=== PATIENT | female | born 1940 | race Caucasian/White ===

== ENCOUNTER → 2017-12-03 | Day surgery (SDC) | payer MEDICARE, OTHER ==
[2017-12-02 16:18] LABS: BASOPHILS # (AUTO) 0.1 (0.0-0.1); BASOPHILS % 1.3 % (0.0-1.0); EOSINOPHILS # (AUTO) 0.9 (0.0-0.4); EOSINOPHILS % 14.3 % (0.0-6.0); HEMATOCRIT 33.7 % (34.2-44.1); HEMOGLOBIN 10.7 g/dL (12.0-16.0); LYMPHOCYTES # (AUTO) 2.6 (1.0-3.2); LYMPHOCYTES % 43.7 % (18.0-39.1); MEAN CORPUSCULAR HEMOGLOBIN 28.2 pg (28-32); MEAN CORPUSCULAR HGB CONC 31.8 g/dL (31-35); MEAN CORPUSCULAR VOLUME 88.9 fL (81-99); MONOCYTES # (AUTO) 0.8 (0.2-0.8); MONOCYTES % 13.3 % (4.4-11.3); NEUTROPHILS # (AUTO) 1.6 (2.1-6.9); NEUTROPHILS % 27.2 % (38.7-80.0); PLATELET COUNT 255 x10e3/uL (140-360); RED BLOOD COUNT 3.79 x10e6/uL (3.6-5.1); RED CELL DISTRIBUTION WIDTH 15.5 % (11.7-14.4)
[2017-12-02 16:29] LABS: INR 0.77; PROTHROMBIN TIME 11.5 seconds (11.9-14.5)
[2017-12-02 16:37] LABS: ALBUMIN 4.2 g/dL (3.5-5.0); ALBUMIN/GLOBULIN RATIO 1.2 (0.8-2.0); ANION GAP 15.6 mmol/L (8-16); CHOL/HDL RATIO 3.6 (3.0-3.6); CREATININE, SERUM 1.21 mg/dL (0.57-1.11); POTASSIUM 4.6 mmol/L (3.5-5.1)
[2017-12-02 16:50] LABS: CALCIUM 9.9 mg/dL (8.4-10.2)
[~2017-12-03] VITALS: Ht 147.3 cm; Wt 60.8 kg
[2017-12-03] VITALS (9 sets, daily range): BP systolic 117–140; BP diastolic 51–68
[~2017-12-03] MED LIST: ACETAMINOPHEN500 MG; ADVAIR 250-501 EACH PO; ALBUTEROL2.5 MG/0.5 NEB; AZITHROMYCIN250 MG; BENTYL20 MG PO; BENZONATATE100 MG PO; CLOBETASOL EMOL15 GM; COUMADIN5 MG PO; CYPROHEPTADINE H4 MG PO; DICYCLOMINE HCL20 MG PO; DRONABINOL2.5 MG PO; FENTANYL CITRATE/PF 100MCG/2 ML INJ ONE; FLAGYL250 MG PO; HEPARIN SOD (PORCINE) 1000 UNIT/ML 30ML ONE; HEPARIN SOD/SOD CHLORIDE 2,000 ML ONE; HYDROXYCHLOROQ200 MG PO; IOPAMIDOL 370 MG/ML 200 ML INFUS..BTL INJ ONE; IPRATROPIU0.2 MG/1 M NEB; LEFLUNOMIDE10 MG PO; LEFLUNOMIDE20 MG PO; LEVAQUIN500 MG PO; LIDOCAINE HCL 2% LOCAL 20 ML VIAL ONE; LISINOPRIL10 MG PO; LISINOPRIL40 MG PO; LUMIGAN2.5 M1 OP; LUMIGAN2.5 M1 OU; METOCLOPRAMID5 MG/ML IV; METOCLOPRAMIDE10 MG PO; MIDAZOLAM HCL 2 MG/2 ML VIAL ONE; NITROGLYCERIN/D5W 200 MCG/ML 250 ML ONE; NORCO 7.5-3251 EACH PO; OMEPRAZOLE20 M1 PO; OMEPRAZOLE20 MG PO; OMEPRAZOLE40 MG PO; ONDANSETRON HCL INJ 2 MG/ML VIAL ONE; ONDANSETRON HCL4 MG PO; OTEZLA PO; PANTOPRAZOLE SO40 MG PO; PRAVASTATIN SOD40 MG PO; PREDNISONE10 MG PO; PREDNISONE20 MG PO; PROVENTIL HFA6.7 GM INH; REQUIP1 MG PO; ROPINIROLE HCL1 MG PO; SODIUM CHLORIDE 0.9% 1000ML 1,000 ML ONE; ULTRAM50 MG PO; UNKNOWN INHALER; VERAPAMIL HCL 2.5 MG/ML 2 ML VIAL ONE; VITAMIN D400 UNIT PO; [UNRECOGNIZED DRUG - CODE] PO; [UNRECOGNIZED DRUG - OTHER]
--- NOTE | 2017-12-03 12:44 | Operative Report ---
DATE OF PROCEDURE: December 03, 2017 PROCEDURE: Cardiac catheterization. INDICATIONS FOR THE PROCEDURE: Atypical chest pain, positive stress test. History of coronary artery disease. PREOPERATIVE ASSESSMENT: Pertinent medical record and diagnostic studies were reviewed prior to the procedure. Previous experience with anesthesia was reviewed. Pertinent risks, benefits and alternatives of the procedure were explained to the patient. Patient was deemed to be an appropriate candidate for moderate sedation. Informed consent for the procedure was obtained after explaining the risks, the benefits and the alternatives to the procedure to the patient and her family. All questions were answered. PROCEDURE: Patient was prepped and draped in a sterile fashion and brought to the cardiac catheterization laboratory in a fasting state. A 6-Tamazight Slender sheath was inserted in the right radial artery using modified Seldinger technique. Coronary angiography as well as left heart catheterization was performed using a Reebee diagnostic catheter. Multiple orthogonal views of both coronary arteries were taken. All catheters were removed over a wire. The access site was closed using a TR band. Case ended without any complications. PERTINENT FINDINGS LEFT MAIN: Short. Mild plaquing without obstructive CAD. LAD: Large vessel, wraps around the apex. One large diagonal branch. Luminal irregularities only. LEFT CIRCUMFLEX: Large, nondominant left circumflex. One large OM branch. Tortuous with luminal irregularities only. RCA: Dominant RCA with proximal RCA stent without significant in-stent restenosis. The rest of the RCA with luminal irregularities only. LV END-DIASTOLIC PRESSURE: 15 mmHg. SPECIMEN REMOVED: None. GRAFTS AND IMPLANTS: None. ESTIMATED BLOOD LOSS: 10 mL. FINAL RECOMMENDATIONS 1. Resume optimal medical therapy and risk factor control. 2. Follow up in clinic in 2 weeks post procedure. Thank you for this consult. Will continue to follow. Job#: [id number]
--- OUTSIDE RECORDS SUMMARY | 2017-12-09 12:35 | XMS REPORT | Continuity of Care Document ---
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 Ace Singh Osteoarthritis Active Problem 10/25/2017 Ace Singh Psoriasis Active Problem 07/13/2015 Ace Singh Unspecified vitamin D deficiency Active Problem 07/13/2015 Ace Singh Lumbago Active Problem 07/13/2015 Ace Singh Osteopenia Active Problem 07/13/2015 Ace Singh Unspecified inflammatory polyarthropathy Active Problem 07/13/2015 Ace Singh Osteoarthrosis, multiple sites Active Problem 07/13/2015 Ace Singh Bursitis, Hip Active Problem 07/13/2015 Ace Singh 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 Ace Singh Pain in joint, hand Active Problem 07/13/2015 Ace Singh Abnormal kidney function study Active Diagnosis 06/28/2017 Ace Singh Abnormal kidney function Active Diagnosis 06/28/2017 Ace Singh Encounter for long-term use of other high-risk medications Active Diagnosis 07/06/2015 Ace Singh Medications Medication Details Route Status Patient Instructions Ordering Provider Order Date Source Humira Pen 0.8 ml Subcutaneous Active 40 MG/0.8ML Subcutaneous once every 2 weeks [place] 05/08/2017 Ace Singh Calcium 600 1 tab Orally Active 600 MG Orally twice a day OTC [place] 03/13/2017 Ace Cotterer PredniSONE 1 tablet Orally Active 5 MG Orally Once a day Singh 12/06/2016 Ace Singh PredniSONE 1 tablet Orally Active 5 MG Orally Once a day [place] 12/06/2016 Ace Singh Clobetasol Propionate 1 application to affected area Externally Active 0.05 % Externally Twice a day [place] 11/16/2016 Ace Singh Humira 0.8 ml Subcutaneous Active 40 MG/0.8ML Subcutaneous every other week [facility] 11/12/2016 Ace Singh Prednisone Taper 3 tablets for 5 days, 2 tablets for 5 days and then 1 tablet for 5 days orally Active 5mg orally q am with food [facility] 11/12/2016 Ace Singh Prednisone Taper 3 tablets for 5 days, 2 tablets for 5 days and then 1 tablet for 5 days orally Active 5mg orally q am with food [place] 11/12/2016 Ace Singh Humira 0.8 ml Subcutaneous Active 40 MG/0.8ML Subcutaneous every other week [place] 11/12/2016 Ace Singh Mometasone Furoate 1 application to affected area Externally Active 0.1 % Externally Twice a day [place] 05/28/2016 Ace Singh Mometasone Furoate 1 application to affected area Externally Active 0.1 % Externally Twice a day [facility] 05/28/2016 Ace Singh Olux 1 application to affected area Externally Active 0.05 % Externally Twice a day [place] 05/20/2016 Ace Singh Olux 1 application to affected area Externally Active 0.05 % Externally Twice a day [facility] 05/20/2016 Ace Singh Vitamin D (Ergocalciferol) take 1 capsule one time weekly Orally Active [address]11 UNIT Orally once a week [place] 05/20/2016 Ace Singh PredniSONE 1-2 tablets Orally Active 5 MG Orally Once a day as needed [place] 09/11/2015 Ace Singh Tylenol/Codeine #3 1-2 tablets as needed Orally Active 300-30 MG Orally at night [place] 08/10/2015 Ace Singh Alendronate Sodium 1 tablet Orally Active 70 MG Orally once a week [place] 08/08/2015 Ace Singh Vitamin D (Ergocalciferol) 1 capsule Orally Active 84705 UNIT Orally Once a week [place] 07/25/2015 Ace Singh Otezla 1 tablet Orally Active 30 MG Orally Twice a day [facility] 07/13/2015 Ace Singh Otezla 1 tablet Orally Active 30 MG Orally Twice a day [place] 07/13/2015 Ace Singh Tramadol HCl 1 tablet as needed Orally Active 50 MG Orally prn [place] 06/25/2015 Ace Singh Otezla 1 tablet Orally Active 30 MG Orally Twice a day [place] 06/07/2015 Ace Singh Alendronate Sodium 1 tablet Orally No Longer Active 70 MG Orally once a week [place] 06/07/2015 Ace Singh Leflunomide 1 tablet Orally Active 10 MG Orally Once a day [facility] 04/11/2015 Ace Singh Clobetasol Propionate 1 application to affected area Externally Active 0.05 % Externally Twice a day [place] 02/09/2015 Ace Singh Olux 1 application to affected area Externally Active 0.05 % Externally Twice a day [place] 02/09/2015 Ace Singh Plaquenil 1 tablet with food or milk Orally Active 200 MG Orally Twice a day [place] 02/09/2015 Ace Singh Prednisone Taper 3 tablets for 5 days, 2 tablets for 5 days and then 1 tablet for 5 days orally Active 5mg orally qa m with food [place] 02/06/2015 Ace Singh Tylenol Arthritis Pain 1 tablet as needed Orally Active 650 MG Orally as needed [place] Ace Singh Lumigan 1 drop into affected eye every evening Ophthalmic Active 0.03 % Ophthalmic Once a day [place] Ace Singh Tramadol HCl as directed Orally Active 50 MG Orally [place] Ace Singh Ropinirole HCl 1 tablet 1 to 3 hours before bedtime Orally Active 1 MG Orally Once a day [place] Ace Singh Lisinopril 1 tablet Orally Active 20 MG Orally Once a day [place] Ace Singh Vitamin D (Ergocalciferol) TAKE 1 CAPSULE ONE TIME WEEKLY NA Active 67899 UNIT [place] Ace Singh Lumigan 1 drop into affected eye every evening Ophthalmic Active 0.03 % Ophthalmic Once a day [place] Ace Singh Clobetasol Propionate 1 application to affected area Externally Active 0.05 % Externally Twice a day [place] Ace Singh Ropinirole HCl 1 tablet 1-3 hrs before bedtime Orally Active 1 MG Orally Once a day [place] Ace Singh Tramadol HCl as directed Orally Active 50 MG Orally [place] Ace Singh Tylenol Arthritis Pain 1 tablet as needed Orally Active 650 MG Orally as needed [place] Ace Singh Lisinopril 1 tablet Orally Active 20 MG Orally Once a day [place] Ace Singh Clobetasol Propionate 1 application to affected area Externally Active 0.05 % Externally Twice a day [place] Ace Singh Alendronate Sodium 1 tablet Orally Active 70 MG Orally once a week [place] Ace Singh Crestor 1 tablet Orally Active Pt unsure of dose Orally Once a day [place] Ace Cotterer Leflunomide 1 tablet Orally Active 20 MG Orally Once a day [place] Ace Singh Tramadol HCl 1 tablet as needed Orally Active 50 MG Orally every 8 hrs [place] Ace Singh Prednisone Taper 3 tablets for 5 days, 2 tablets for 5 days and then 1 tablet for 5 days NA Active 5mg [place] Ace Singh Warfarin Sodium 1 tablet Orally Active 2.5 MG Orally Once a day [place] Ace Singh Leflunomide 1 tablet Orally Active 10 MG Orally Once a day [place] Ace Singh Protonix 1 tablet Orally Active 40 MG Orally Once a day [place] Ace Singh Dicyclomine HCl 1 tablet Orally Active 20 MG Orally Four times a day [place] Ace Singh Omeprazole 1 capsule Orally Active 40 MG Orally Once a day [place] Ace Singh Pravastatin Sodium 1 tablet Orally Active 40 MG Orally Once a day [place] Ace Singh Ondansetron 1 tablet on the tongue and allow to dissolve Orally Active 4 MG Orally every 8 hrs [place] Ace Singh Alendronate Sodium 1 tablet Orally Active 70 MG Orally once a week [place] Ace Singh Plaquenil 1 tablet with food or milk Orally Active 200 MG Orally Twice a day [place] Ace Singh Allergies, Adverse Reactions, Alerts Substance Category Reaction Severity Reaction type Status Date Reported Comments Source Plaquenil Adverse Reaction Info Not Available Adverse Reaction Active 10/16/2017 Ace Singh Sulfa Adverse Reaction Info Not Available Adverse Reaction Active 10/16/2017 Ace Singh Potassium Adverse Reaction hyperkalemia Adverse Reaction Active 10/16/2017 Ace Singh Leflunomide Adverse Reaction Info Not Available Adverse Reaction Active 10/16/2017 Ace Singh Immunizations Immunization Date Given Site Status Last Updated Comments Source Depomedrol 11/09/2015 completed Ace Singh Prolia 08/10/2015 completed Ace Singh Depomedrol 03/27/2015 completed Ace Singh Results Order Name Results Value Reference Range Date Interpretation Comments Source Vital Signs Vital Sign Value Date Comments Source Weight 136.3 10/16/2017 Ace Singh Height 58 10/16/2017 Ace Singh Temperature Oral (F) 97.3 F 10/16/2017 Ace Singh Heart Rate 82 10/16/2017 Ace Singh Diastolic (mm Hg) 62 10/16/2017 Ace Singh Systolic (mm Hg) 130 10/16/2017 Ace Singh Weight 135 05/08/2017 Ace Singh Height 58 05/08/2017 Ace Singh Temperature Oral (F) 97.6 F 05/08/2017 Ace Singh Heart Rate 78 05/08/2017 Ace Singh Diastolic (mm Hg) 58 05/08/2017 Ace Singh Systolic (mm Hg) 112 05/08/2017 Ace Singh Weight 137.3 03/13/2017 Ace Singh Height 57 03/13/2017 Ace Singh Temperature Oral (F) 95.6 F 03/13/2017 Ace Singh Heart Rate 80 03/13/2017 Ace Singh Diastolic (mm Hg) 54 03/13/2017 Ace Singh Systolic (mm Hg) 110 03/13/2017 Ace Singh Weight 133 11/12/2016 Ace Singh Height 58 11/12/2016 Ace Singh Temperature Oral (F) 97.3 F 11/12/2016 Ace Singh Heart Rate 80 11/12/2016 Ace Singh Diastolic (mm Hg) 64 11/12/2016 Ace Singh Systolic (mm Hg) 132 11/12/2016 Ace Singh Weight 129.4 08/13/2016 Ace Singh Height 58 08/13/2016 Ace Singh Temperature Oral (F) 96.4 F 08/13/2016 Ace Singh Heart Rate 72 08/13/2016 Ace Singh Diastolic (mm Hg) 60 08/13/2016 Ace Singh Systolic (mm Hg) 140 08/13/2016 Ace Singh Weight 137 05/20/2016 Ace Singh Height 58 05/20/2016 Ace Singh Temperature Oral (F) 97.0 F 05/20/2016 Ace Singh Heart Rate 76 05/20/2016 Ace Singh Diastolic (mm Hg) 58 05/20/2016 Ace Singh Systolic (mm Hg) 138 05/20/2016 Ace Singh Weight 131 02/20/2016 Ace Singh Height 57.5 02/20/2016 Ace Singh Temperature Oral (F) 97.5 F 02/20/2016 Ace Singh Heart Rate 78 02/20/2016 Ace Singh Diastolic (mm Hg) 54 02/20/2016 Ace Singh Systolic (mm Hg) 140 02/20/2016 Ace Singh Weight 128 11/09/2015 Ace Singh Height 58 11/09/2015 Ace Singh Temperature Oral (F) 97.0 F 11/09/2015 Ace Singh Heart Rate 80 11/09/2015 Ace Singh Diastolic (mm Hg) 50 11/09/2015 Ace Singh Systolic (mm Hg) 116 11/09/2015 Ace Singh Heart Rate 76 08/10/2015 Ace Singh Diastolic (mm Hg) 60 08/10/2015 Ace Singh Systolic (mm Hg) 110 08/10/2015 Ace Singh Temperature Oral (F) 96.8 F 08/10/2015 Ace Singh Weight 113 07/12/2015 Ace Singh Height 58 07/12/2015 Ace Singh Temperature Oral (F) 97.3 F 07/12/2015 Ace Singh Heart Rate 76 07/12/2015 Ace Singh Diastolic (mm Hg) 50 07/12/2015 Ace Singh Systolic (mm Hg) 116 07/12/2015 Ace Singh Weight 117 06/07/2015 Ace Singh Height 58 06/07/2015 Ace Singh Temperature Oral (F) 98.2 F 06/07/2015 Ace Singh Heart Rate 80 06/07/2015 Ace Singh Diastolic (mm Hg) 50 06/07/2015 Ace Singh Systolic (mm Hg) 120 06/07/2015 Ace Singh Weight 122 03/27/2015 Ace Singh Height 58 03/27/2015 Ace Singh Temperature Oral (F) 97.4 F 03/27/2015 Ace Singh Heart Rate 80 03/27/2015 Ace Singh Diastolic (mm Hg) 58 03/27/2015 Ace Singh Systolic (mm Hg) 128 03/27/2015 Ace Singh Weight 143 08/03/2013 Ace Singh Height 58 08/03/2013 Ace Singh Temperature Oral (F) 97.6 F 08/03/2013 Ace Singh Heart Rate 84 08/03/2013 Ace Singh Diastolic (mm Hg) 52 08/03/2013 Ace Singh Systolic (mm Hg) 116 08/03/2013 Ace Singh Encounters Location Location Details Encounter Type Encounter Number Reason For Visit Attending Provider ADM Date DC Date Status Source Herbert Singh MD f/u [id number] 08/03/2013 08/03/2013 Ace Singh MD f/u [id number] 08/03/2013 08/03/2013 Ace Singh MD f/u [id number] 08/03/2013 08/03/2013 Ace Singh MD f/u [id number] 08/03/2013 08/03/2013 Ace Singh MD f/u [id number] 08/03/2013 08/03/2013 Ace Singh MD f/u [id number] 08/03/2013 08/03/2013 Ace Singh MD f/u [id number] 08/03/2013 08/03/2013 Ace Singh MD f/u [id number] 08/03/2013 08/03/2013 Ace Singh MD f/u [id number] 08/03/2013 08/03/2013 Ace Singh MD f/u [id number] 08/03/2013 08/03/2013 Ace Singh MD f/u [id number] 08/03/2013 08/03/2013 Ace Singh MD f/u [id number] 08/03/2013 08/03/2013 Ace Singh MD f/u [id number] 08/03/2013 08/03/2013 Ace Singh MD f/u [id number] 08/03/2013 08/03/2013 Ace Singh MD f/u [id number] 08/03/2013 08/03/2013 Ace Singh MD f/u [id number] 08/03/2013 08/03/2013 Ace Singh MD f/u [id number] 08/03/2013 08/03/2013 Ace Singh MD f/u [id number] 08/03/2013 08/03/2013 Ace Singh MD f/u [id number] 08/03/2013 08/03/2013 Ace Singh MD f/u [id number] 08/03/2013 08/03/2013 Ace Singh MD f/u [id number] 08/03/2013 08/03/2013 Ace Singh MD f/u [id number] 08/03/2013 08/03/2013 Ace Singh MD f/u [id number] 08/03/2013 08/03/2013 Ace Singh MD f/u [id number] 08/03/2013 08/03/2013 Ace Singh MD f/u [id number] 08/03/2013 08/03/2013 Ace Singh MD f/u [id number] 08/03/2013 08/03/2013 Ace Singh MD Unknown [id number] 10/01/2013 10/01/2013 Ace Singh MD Unknown [id number] 10/01/2013 10/01/2013 Ace Singh MD Unknown [id number] 10/01/2013 10/01/2013 Ace Singh MD Unknown [id number] 10/01/2013 10/01/2013 Ace Singh MD Unknown [id number] 10/01/2013 10/01/2013 Ace Singh MD Unknown [id number] 10/01/2013 10/01/2013 Ace Singh MD Unknown [id number] 10/01/2013 10/01/2013 Ace Singh MD Unknown [id number] 10/01/2013 10/01/2013 Ace Singh MD Unknown [id number] 10/01/2013 10/01/2013 Ace Singh MD Unknown [id number] 10/01/2013 10/01/2013 Ace Singh MD Unknown [id number] 10/01/2013 10/01/2013 Ace Singh MD Unknown [id number] 10/01/2013 10/01/2013 Ace Singh MD Unknown [id number] 10/01/2013 10/01/2013 Ace Singh MD Unknown [id number] 10/01/2013 10/01/2013 Ace Singh MD Unknown [id number] 10/01/2013 10/01/2013 Ace Singh MD Unknown [id number] 10/01/2013 10/01/2013 Ace Singh MD Unknown [id number] 10/01/2013 10/01/2013 Ace Singh MD Unknown [id number] 10/01/2013 10/01/2013 Ace Singh MD Unknown [id number] 10/01/2013 10/01/2013 Ace Singh MD Unknown [id number] 10/01/2013 10/01/2013 Ace Singh MD Unknown [id number] 10/01/2013 10/01/2013 Ace Singh MD Unknown [id number] 10/01/2013 10/01/2013 Ace Singh MD Unknown [id number] 10/01/2013 10/01/2013 Ace Singh MD Unknown [id number] 10/01/2013 10/01/2013 Ace Singh MD Unknown [id number] 10/01/2013 10/01/2013 Ace Singh MD burstits [id number] 10/21/2013 10/21/2013 Ace Singh MD burstits [id number] 10/21/2013 10/21/2013 Ace Singh MD burstits [id number] 10/21/2013 10/21/2013 Ace Singh MD [facility] [id number] 10/21/2013 10/21/2013 Ace Singh MD [place] [id number] 10/21/2013 10/21/2013 Ace Singh MD [place] [id number] 10/21/2013 10/21/2013 Ace Singh MD [place] [id number] 10/21/2013 10/21/2013 Ace Singh MD [facility] [id number] 10/21/2013 10/21/2013 Ace Singh MD [place] [id number] 10/21/2013 10/21/2013 Ace Singh MD [place] [id number] 10/21/2013 10/21/2013 Ace Singh MD [place] [id number] 10/21/2013 10/21/2013 Ace Singh MD [place] [id number] 10/21/2013 10/21/2013 Ace Singh MD [place] [id number] 10/21/2013 10/21/2013 Ace Singh MD [place] [id number] 10/21/2013 10/21/2013 Ace Singh MD [place] [id number] 10/21/2013 10/21/2013 Ace Singh MD [place] [id number] 10/21/2013 10/21/2013 Ace Singh MD [place] [id number] 10/21/2013 10/21/2013 Ace Singh MD [place] [id number] 10/21/2013 10/21/2013 Ace Singh MD [place] [id number] 10/21/2013 10/21/2013 Ace Singh MD [place] [id number] 10/21/2013 10/21/2013 Ace Singh MD [place] [id number] 10/21/2013 10/21/2013 Ace Singh MD [place] [id number] 10/21/2013 10/21/2013 Ace Singh MD Arava [id number] 11/10/2013 11/10/2013 Ace Singh MD Arava [id number] 11/10/2013 11/10/2013 Ace Singh MD Arava [id number] 11/10/2013 11/10/2013 Ace Singh MD Arava [id number] 11/10/2013 11/10/2013 Ace Singh MD Arava [id number] 11/10/2013 11/10/2013 Ace Singh MD Arava [id number] 11/10/2013 11/10/2013 Ace Singh MD Arava [id number] 11/10/2013 11/10/2013 Ace Singh MD Arava [id number] 11/10/2013 11/10/2013 Ace Singh MD Arava [id number] 11/10/2013 11/10/2013 Ace Singh MD Arava [id number] 11/10/2013 11/10/2013 Ace Singh MD Arava [id number] 11/10/2013 11/10/2013 Ace Singh MD Arava [id number] 11/10/2013 11/10/2013 Ace Singh MD Arava [id number] 11/10/2013 11/10/2013 Ace Singh MD Arava [id number] 11/10/2013 11/10/2013 Ace Singh MD A[facility] [id number] 11/10/2013 11/10/2013 Ace Singh MD Arava [id number] 11/10/2013 11/10/2013 Ace Singh MD Arava [id number] 11/10/2013 11/10/2013 Ace Singh MD Arava [id number] 11/10/2013 11/10/2013 Ace Singh MD A[facility] [id number] 11/10/2013 11/10/2013 Ace Singh MD Arava [id number] 11/10/2013 11/10/2013 Ace Singh MD Arava [id number] 11/10/2013 11/10/2013 Ace Singh MD Arava [id number] 11/10/2013 11/10/2013 Ace Singh MD Arava [id number] 11/10/2013 11/10/2013 Ace Singh MD Arava [id number] 11/10/2013 11/10/2013 Ace Singh MD torodol injection [id number] 12/07/2013 12/07/2013 Ace Singh MD torodol injection [id number] 12/07/2013 12/07/2013 Ace Singh MD torodol injection [id number] 12/07/2013 12/07/2013 Ace Singh MD torodol injection [id number] 12/07/2013 12/07/2013 Ace Singh MD torodol injection [id number] 12/07/2013 12/07/2013 Ace Singh MD torodol injection [id number] 12/07/2013 12/07/2013 Ace Singh MD torodol injection [id number] 12/07/2013 12/07/2013 Ace Singh MD torodol injection [id number] 12/07/2013 12/07/2013 Ace Singh MD torodol injection [id number] 12/07/2013 12/07/2013 Ace Singh MD torodol injection [id number] 12/07/2013 12/07/2013 Ace Singh MD torodol injection [id number] 12/07/2013 12/07/2013 Ace Singh MD torodol injection [id number] 12/07/2013 12/07/2013 Ace Singh MD torodol injection [id number] 12/07/2013 12/07/2013 Ace Singh MD torodol injection [id number] 12/07/2013 12/07/2013 Ace Singh MD torodol injection [id number] 12/07/2013 12/07/2013 Ace Singh MD torodol injection [id number] 12/07/2013 12/07/2013 Ace Singh MD torodol injection [id number] 12/07/2013 12/07/2013 Ace Singh MD torodol injection [id number] 12/07/2013 12/07/2013 Ace Singh MD torodol injection [id number] 12/07/2013 12/07/2013 Ace Singh MD torodol injection [id number] 12/07/2013 12/07/2013 Ace Singh MD torodol injection [id number] 12/07/2013 12/07/2013 Ace Singh MD torodol injection [id number] 12/07/2013 12/07/2013 Ace Singh MD torodol injection [id number] 12/07/2013 12/07/2013 Ace Singh MD R HAND PAIN [id number] 11/28/2014 11/28/2014 Ace Singh MD R HAND PAIN [id number] 11/28/2014 11/28/2014 Ace Singh MD R HAND PAIN [id number] 11/28/2014 11/28/2014 Ace Singh MD R HAND PAIN [id number] 11/28/2014 11/28/2014 Ace Singh MD [facility] HAND PA[facility] [id number] 11/28/2014 11/28/2014 Ace Singh MD [facility] HAND PAIN [id number] 11/28/2014 11/28/2014 Ace Singh MD [facility] HAND PA[facility] [id number] 11/28/2014 11/28/2014 Ace Singh MD [facility] HAND PA[facility] [id number] 11/28/2014 11/28/2014 Ace Singh MD [facility] HAND PAIN [id number] 11/28/2014 11/28/2014 Ace Singh MD [facility] HAND PAIN [id number] 11/28/2014 11/28/2014 Ace Singh MD [facility] HAND PA[facility] [id number] 11/28/2014 11/28/2014 Ace Singh MD [facility] HAND PA[facility] [id number] 11/28/2014 11/28/2014 Ace Singh MD [facility] HAND PA[facility] [id number] 11/28/2014 11/28/2014 Ace Singh MD [facility] HAND PA[facility] [id number] 11/28/2014 11/28/2014 Ace Singh MD [facility] HAND PA[facility] [id number] 11/28/2014 11/28/2014 Ace Singh MD [facility] HAND PA[facility] [id number] 11/28/2014 11/28/2014 Ace Singh MD [facility] HAND PAIN [id number] 11/28/2014 11/28/2014 Ace Singh MD [facility] HAND PAIN [id number] 11/28/2014 11/28/2014 Ace Singh MD [facility] HAND PAIN [id number] 11/28/2014 11/28/2014 Ace Singh MD [facility] HAND PAIN [id number] 11/28/2014 11/28/2014 Ace Singh MD [facility] HAND PA[facility] [id number] 11/28/2014 11/28/2014 Ace Singh MD [facility] HAND PAIN [id number] 11/28/2014 11/28/2014 Ace Singh MD Update [id number] 12/15/2014 12/15/2014 Ace Singh MD Update [id number] 12/15/2014 12/15/2014 Ace Singh MD Update [id number] 12/15/2014 12/15/2014 Ace Singh MD Update [id number] 12/15/2014 12/15/2014 Ace Singh MD Update [id number] 12/15/2014 12/15/2014 Ace Singh MD Update [id number] 12/15/2014 12/15/2014 Ace Singh MD Update [id number] 12/15/2014 12/15/2014 Ace Singh MD Update [id number] 12/15/2014 12/15/2014 Ace Singh MD Update [id number] 12/15/2014 12/15/2014 Ace Singh MD Update [id number] 12/15/2014 12/15/2014 Ace Singh MD Update [id number] 12/15/2014 12/15/2014 Ace Singh MD Update [id number] 12/15/2014 12/15/2014 Ace Singh MD Update [id number] 12/15/2014 12/15/2014 Ace Singh MD Update [id number] 12/15/2014 12/15/2014 Ace Singh MD Update [id number] 12/15/2014 12/15/2014 Ace Singh MD Update [id number] 12/15/2014 12/15/2014 Ace Singh MD Update [id number] 12/15/2014 12/15/2014 Ace Singh MD Update [id number] 12/15/2014 12/15/2014 Ace Singh MD Update [id number]-3j59ls2jl3k2 12/15/2014 12/15/2014 Ace Singh MD Update [id number]-sw73-113ll6iqme6t 12/15/2014 12/15/2014 Ace Singh MD Update [id number]-p902-66n8i6x74g7r 12/15/2014 12/15/2014 Ace Singh MD Update [id number]-m451-s3nn3j484x36 12/15/2014 12/15/2014 Ace Singh MD PAIN [id number] 02/06/2015 02/06/2015 Ace Singh MD PAIN [id number] 02/06/2015 02/06/2015 Ace Singh MD PAIN [id number] 02/06/2015 02/06/2015 Ace Singh MD PAIN [id number] 02/06/2015 02/06/2015 Ace Singh MD PAIN [id number] 02/06/2015 02/06/2015 Ace Singh MD PAIN [id number] 02/06/2015 02/06/2015 Ace Singh MD PAIN [id number] 02/06/2015 02/06/2015 Ace Singh MD PAIN [id number] 02/06/2015 02/06/2015 Ace Singh MD PAIN [id number] 02/06/2015 02/06/2015 Ace Singh MD PAIN [id number] 02/06/2015 02/06/2015 Ace Singh MD PAIN [id number] 02/06/2015 02/06/2015 Ace Singh MD PAIN [id number] 02/06/2015 02/06/2015 Ace Singh MD PAIN [id number]-[id number] 02/06/2015 02/06/2015 Ace Singh MD PAIN [id number] 02/06/2015 02/06/2015 Ace Singh MD ALL JOINTS HURT [id number] 02/06/2015 02/06/2015 Ace Singh MD ALL JOINTS HURT [id number] 02/06/2015 02/06/2015 Ace Singh MD ALL JOINTS HURT [id number] 02/06/2015 02/06/2015 Ace Singh MD ALL JOINTS HURT [id number] 02/06/2015 02/06/2015 Ace Singh MD ALL JOINTS HURT [id number] 02/06/2015 02/06/2015 Ace Singh MD ALL JOINTS HURT [id number] 02/06/2015 02/06/2015 Ace Singh MD ALL JOINTS HURT [id number] 02/06/2015 02/06/2015 Ace Singh MD ALL JOINTS HURT [id number] 02/06/2015 02/06/2015 Ace Singh MD ALL JOINTS HURT [id number] 02/06/2015 02/06/2015 Ace Singh MD ALL JOINTS HURT [id number] 02/06/2015 02/06/2015 Ace Singh MD ALL JOINTS HURT [id number] 02/06/2015 02/06/2015 Ace Singh MD ALL JOINTS HURT [id number] 02/06/2015 02/06/2015 Ace Singh MD ALL JOINTS HURT [id number] 02/06/2015 02/06/2015 Ace Singh MD ALL JOINTS HURT [id number] 02/06/2015 02/06/2015 Ace Singh MD PAIN [id number] 02/06/2015 02/06/2015 Ace Singh MD PAIN [id number] 02/06/2015 02/06/2015 Ace Singh MD PAIN [id number] 02/06/2015 02/06/2015 Ace Singh MD PAIN [id number] 02/06/2015 02/06/2015 Ace Singh MD PAIN [id number] 02/06/2015 02/06/2015 Ace Singh MD PAIN [id number] 02/06/2015 02/06/2015 Ace Singh MD PAIN [id number] 02/06/2015 02/06/2015 Ace Singh MD PAIN [id number] 02/06/2015 02/06/2015 Ace Singh MD ALL JOINTS HURT [id number] 02/06/2015 02/06/2015 Ace Singh MD ALL JOINTS HURT [id number]-h1b6-27uvt01ozg09 02/06/2015 02/06/2015 Ace Singh MD ALL JOINTS HURT [id number] 02/06/2015 02/06/2015 Ace Singh MD ALL JOINTS HURT [id number] 02/06/2015 02/06/2015 Ace Singh MD ALL JOINTS HURT [id number] 02/06/2015 02/06/2015 Ace Singh MD ALL JOINTS HURT [id number] 02/06/2015 02/06/2015 Ace Singh MD ALL JOINTS HURT [id number] 02/06/2015 02/06/2015 Ace Singh MD ALL JOINTS HURT [id number]-xme2-88ic4gj2zrod 02/06/2015 02/06/2015 Ace Singh MD DEXA [id number] 03/27/2015 03/27/2015 Ace Singh MD DEXA [id number] 03/27/2015 03/27/2015 Ace Singh MD DEXA [id number] 03/27/2015 03/27/2015 Ace Singh MD DEXA [id number] 03/27/2015 03/27/2015 Ace Singh MD DEXA [id number] 03/27/2015 03/27/2015 Ace Singh MD DEXA [id number] 03/27/2015 03/27/2015 Ace Singh MD DEXA [id number] 03/27/2015 03/27/2015 Ace Singh MD DEXA [id number]-[id number] 03/27/2015 03/27/2015 Ace Singh MD DEXA [id number] 03/27/2015 03/27/2015 Ace Singh MD DEXA [id number] 03/27/2015 03/27/2015 Ace Singh MD DEXA [id number] 03/27/2015 03/27/2015 Ace Singh MD DEXA [id number] 03/27/2015 03/27/2015 Ace Singh MD DEXA [id number] 03/27/2015 03/27/2015 Ace Singh MD DEXA [id number] 03/27/2015 03/27/2015 Ace Singh MD DEXA [id number] 03/27/2015 03/27/2015 Ace Singh MD DEXA [id number] 03/27/2015 03/27/2015 Ace Singh MD DEXA [id number] 03/27/2015 03/27/2015 Ace Singh MD DEXA [id number] 03/27/2015 03/27/2015 Ace Singh MD DEXA [id number] 03/27/2015 03/27/2015 Ace Singh MD DEXA [id number] 03/27/2015 03/27/2015 Ace Singh MD 6 WK FU [id number]-[id number] 03/27/2015 03/27/2015 Ace Singh MD 6 WK FU kp5zh5jv-ahy2-6pmp-9653-5168fet9yfis 03/27/2015 03/27/2015 Ace Singh MD 6 WK FU [id number] 03/27/2015 03/27/2015 Ace Singh MD 6 WK FU [id number]-epr1-45z9e1sll853 03/27/2015 03/27/2015 Ace Singh MD 6 WK FU [id number]-b153915b32qw 03/27/2015 03/27/2015 Ace Singh MD 6 WK FU d13ab84j-aoh4-3w7k-whe4-64f8d8gng2a2 03/27/2015 03/27/2015 Ace Singh MD 6 WK FU [id number]-fbzy-7s282026uz57 03/27/2015 03/27/2015 Ace Singh MD 6 WK FU z2mq8puc-q2x2-5779-f17e-7km8n8410xn2 03/27/2015 03/27/2015 Ace Singh MD 6 WK FU f07004hj-[id number]-g95wk678e43l 03/27/2015 03/27/2015 Ace Singh MD 6 WK FU 623od4dc-3a9h-7402-0579-9kr92qm34496 03/27/2015 03/27/2015 Ace Singh MD 6 WK FU 41vljum1-4758-1880-q46p-56k00b40t120 03/27/2015 03/27/2015 Ace Singh MD 6 WK FU [id number]-[id number]-j428-[id number] 03/27/2015 03/27/2015 Ace Singh MD 6 WK FU 28tex14z-3z32-4wzu-136v-yl774rf812b9 03/27/2015 03/27/2015 Ace Singh MD 6 WK FU 53hmov6f-y8m6-95c0-q254-7befrzcy69ks 03/27/2015 03/27/2015 Ace Singh MD 6 WK FU 60pp9d40-2nk2-15r9-t1l0-klg9625v5f6e 03/27/2015 03/27/2015 Ace Singh MD Unknown [id number] 03/30/2015 03/30/2015 Ace Singh MD Unknown [id number] 03/30/2015 03/30/2015 Ace Singh MD Unknown [id number] 03/30/2015 03/30/2015 Ace Singh MD Unknown [id number] 03/30/2015 03/30/2015 Ace Singh MD Unknown [id number] 03/30/2015 03/30/2015 Ace Singh MD Unknown [id number] 03/30/2015 03/30/2015 Ace Singh MD Unknown [id number] 03/30/2015 03/30/2015 Ace Singh MD Unknown [id number] 03/30/2015 03/30/2015 Ace Singh MD Unknown [id number] 03/30/2015 03/30/2015 Ace Singh MD Unknown [id number] 03/30/2015 03/30/2015 Ace Singh MD Unknown [id number] 03/30/2015 03/30/2015 Ace Singh MD Unknown [id number] 03/30/2015 03/30/2015 Ace Singh MD Unknown [id number] 03/30/2015 03/30/2015 Ace Singh MD Unknown [id number] 03/30/2015 03/30/2015 Ace Singh MD LEFLUNOMIDE REFILL [id number] 03/30/2015 03/30/2015 Ace Singh MD LEFLUNOMIDE REFILL 6ccs9dx7-j5o7-4ez0-s7k5-t311s2ty3m4i 03/30/2015 03/30/2015 Ace Singh MD LEFLUNOMIDE REFILL [id number] 03/30/2015 03/30/2015 Ace Singh MD LEFLUNOMIDE REFILL [id number] 03/30/2015 03/30/2015 Ace Singh MD LEFLUNOMIDE REFILL [id number] 03/30/2015 03/30/2015 Ace Singh MD LEFLUNOMIDE REFILL [id number]-[id number] 03/30/2015 03/30/2015 Ace Singh MD LEFLUNOMIDE REFILL [id number]-40v2383j1z48 03/30/2015 03/30/2015 Ace Singh MD LEFLUNOMIDE REFILL [id number]-p6gn1715of09 03/30/2015 03/30/2015 Ace Singh MD LEFLUNOMIDE REFILL [id number]-mvmj-[id number] 03/30/2015 03/30/2015 Ace Singh MD LEFLUNOMIDE REFILL [id number] 03/30/2015 03/30/2015 Ace Singh MD LEFLUNOMIDE REFILL [id number]-99ej-o138mif6616r 03/30/2015 03/30/2015 Ace Singh MD LEFLUNOMIDE REFILL [id number] 03/30/2015 03/30/2015 Ace Singh MD LEFLUNOMIDE REFILL [id number]-r2b21w81br72 03/30/2015 03/30/2015 Ace Singh MD LEFLUNOMIDE REFILL [id number]-02rv-7w6o-l941-3x330pa25h3l 03/30/2015 03/30/2015 Ace Singh MD Unknown [id number] 03/30/2015 03/30/2015 Ace Singh MD Unknown [id number] 03/30/2015 03/30/2015 Ace Singh MD Unknown [id number] 03/30/2015 03/30/2015 Ace Singh MD Unknown [id number] 03/30/2015 03/30/2015 Ace Singh MD LEFLUNOMIDE REFILL [id number]-mf3z4611lju6 03/30/2015 03/30/2015 Ace Singh MD LEFLUNOMIDE REFILL [id number] 03/30/2015 03/30/2015 Ace Singh MD LEFLUNOMIDE REFILL [id number]-l55o-2290d4e3li45 03/30/2015 03/30/2015 Ace Singh MD LEFLUNOMIDE REFILL [id number]-k9q1-s14c8j6828gl 03/30/2015 03/30/2015 Ace Singh MD LEFLUNOMIDE REFILL [id number]-7ln4-bu2w-zm1803h81220 03/30/2015 03/30/2015 Ace Singh MD RX REFILL [id number] 04/11/2015 04/11/2015 Ace Singh MD RX REFILL [id number]-f9n6-24lf33hyx17q 04/11/2015 04/11/2015 Ace Singh MD RX REFILL [id number]-[id number] 04/11/2015 04/11/2015 Ace Singh MD RX REFILL ue3z0k16-32at-45wy-465x-vwl8a1h987gc 04/11/2015 04/11/2015 Ace Singh MD RX REFILL [id number] 04/11/2015 04/11/2015 Ace Singh MD RX REFILL [id number] 04/11/2015 04/11/2015 Ace Singh MD RX REFILL 213c5tu6-jzi9-3xmr-v0y8-k5nc49387o1p 04/11/2015 04/11/2015 Ace Singh MD RX REFILL [id number] 04/11/2015 04/11/2015 Ace Singh MD RX REFILL [id number]-[id number] 04/11/2015 04/11/2015 Ace Singh MD RX REFILL [id number] 04/11/2015 04/11/2015 Ace Singh MD RX REFILL [id number]-3h5u-u34v46s5gz1o 04/11/2015 04/11/2015 Ace Singh MD RX REFILL [id number]-[id number] 04/11/2015 04/11/2015 Ace Singh MD RX REFILL [id number]-p659-7tc7m67t6u32 04/11/2015 04/11/2015 Ace Singh MD RX REFILL [id number]-90x5-q50h-125mym694807 04/11/2015 04/11/2015 Ace Singh MD RX REFILL [id number]-[id number]-0ja6-6fc1t75t2olw 04/11/2015 04/11/2015 Ace Singh MD RX REFILL [id number] 04/11/2015 04/11/2015 Ace Singh MD RX REFILL [id number] 04/11/2015 04/11/2015 Ace Singh MD 6 WK FU f5v2x053-667z-40fi-4u9c-5yxjmx777601 06/07/2015 06/07/2015 Ace Singh MD 6 WK FU [id number]-l35m-1918ir03171u 06/07/2015 06/07/2015 Ace Singh MD 6 WK FU qiy3m6n0-1895-99zq-96i4-454936e9j3b4 06/07/2015 06/07/2015 Ace Singh MD 6 WK FU 2848748c-689f-[id number] 06/07/2015 06/07/2015 Ace Singh MD 6 WK FU l5422x86-6bkt-89s8-v4zh-4298hv3783q5 06/07/2015 06/07/2015 Ace Singh MD 6 WK FU w12c8413-32cq-90h6-gq4s-4553lv4n1z22 06/07/2015 06/07/2015 Ace Singh MD 6 WK FU ep084l4p-9l0o-99k2-z027-e1i3pu5h8c4c 06/07/2015 06/07/2015 Ace Singh MD 6 WK FU n1l049ix-0n40-1fwp-pl80-234f33y3u629 06/07/2015 06/07/2015 Ace Singh MD 6 WK FU d1i0h178-8so0-808g-f70a-22g4q7t29523 06/07/2015 06/07/2015 Ace Singh MD 6 WK FU v901hb88-2skz-7f22-h097-21f46l12x07u 06/07/2015 06/07/2015 Ace Singh MD 6 WK FU 94ctj16m-rlaj-6hf1-co65-1t073fd6t984 06/07/2015 06/07/2015 Ace Singh MD 6 WK FU g95d2b80-3sz3-0y28-9y6e-2449j3jiq715 06/07/2015 06/07/2015 Ace Singh MD Prolaz j5c8no32-7585-6r0a-o3n8-8060377jz8y3 06/07/2015 06/07/2015 MD Davion Verduzco t8y5bc49-i38l-7c4i-46o9-89kh5i4nl9b0 06/07/2015 06/07/2015 MD Davion Verduzco c89cvz64-h4j6-34qz-1v8g-135n68kx9660 06/07/2015 06/07/2015 MD Davion Verduzco vt76q0i4-503s-09r1-hp9p-u4so0309cn6d 06/07/2015 06/07/2015 MD Davion Verduzco dl6okrc0-53vw-2znc-r8w9-1l53k3w5j8iw 06/07/2015 06/07/2015 MD Davion Verduzco 48o54tcn-a072-4b06-7z88-4o9g2x96490v 06/07/2015 06/07/2015 MD Davion Verduzco 262z56y8-491g-7d56-24s4-11y5s70m7l4q 06/07/2015 06/07/2015 MD Davion Verduzco h49b6sm1-k7pu-02z5-lf2d-cb3923jcz05d 06/07/2015 06/07/2015 MD Davion Verduzco 2a32h559-v9i2-41g0-30h9-3q4r36cj22o1 06/07/2015 06/07/2015 MD Davion Verduzco 24htais0-89m5-6b1u-n2tv-30a7e71d7bf5 06/07/2015 06/07/2015 MD Davion Verduzco 6eiy52nb-537f-30lm-z568-d64216743u02 06/07/2015 06/07/2015 MD Davion Verduzco lzn06w28-902i-37kt-o713-671b4iif8s6u 06/07/2015 06/07/2015 MD Davion Verduzco 6up88o0r-d2lz-453s-878a-g54r2ml2366d 06/07/2015 06/07/2015 MD Davion Verduzco piv7t5h1-383g-9l54-7544-3521q0x8ot58 06/07/2015 06/07/2015 MD Davion Verduzco 6200sw13-99k4-3780-zb20-2kd6g3893193 06/07/2015 06/07/2015 MD Davion Verduzco 769956ge-5309-485i-31x1-k1122g07a7u9 06/07/2015 06/07/2015 MD dvaion Verduzco v44i2965-3292-9ya4-w892-3fi50a0449r0 06/08/2015 06/08/2015 MD davion Verduzco vf4ptdt0-9775-7i33-i02s-1daun5pu3l70 06/08/2015 06/08/2015 MD davion Verduzco 5c9y1l69-y2x3-1941-n2o0-6i3316u4d89q 06/08/2015 06/08/2015 MD davion Verduzco hh1drn7a-3a1k-5336-m6u0-20zt94b394y0 06/08/2015 06/08/2015 MD dvaion Verduzco yb2dl518-uoc5-5042-5625-75f73s50g9iw 06/08/2015 06/08/2015 MD davion Verduzco 450keo76-s5e9-748a-fs19-37q3c190oolj 06/08/2015 06/08/2015 MD davion Verduzco 5j466n05-w642-76h4-19e1-2kh95e33sh1x 06/08/2015 06/08/2015 MD davion Verduzco n4y015u2-5544-9p86-sw61-s38012828p7c 06/08/2015 06/08/2015 MD davion Verduzco 7if94175-jilq-58sk-73p7-myw63530mgy4 06/08/2015 06/08/2015 MD davion Verduzco 30c108t3-ar3k-4ql8-3w67-h82ra3508e63 06/08/2015 06/08/2015 Ace Singh MD prolia [id number]-358b-6rng-f6l92y2ivr13 06/08/2015 06/08/2015 Ace Singh MD prolia 91aoqu15-bcay-1522-8f73-0281xzk4665i 06/08/2015 06/08/2015 Ace Singh MD prolia 032y8hwk-8mcc-6090-784i-62lf5a91ttty 06/08/2015 06/08/2015 Ace Singh MD otezla approval [id number] 06/15/2015 06/15/2015 Ace Singh MD otezla approval [id number] 06/15/2015 06/15/2015 Ace Singh MD otezla approval [id number] 06/15/2015 06/15/2015 Ace Singh MD otezla approval [id number] 06/15/2015 06/15/2015 Ace Singh MD otezla approval [id number] 06/15/2015 06/15/2015 Ace Singh MD otezla approval [id number] 06/15/2015 06/15/2015 Ace Singh MD otezla approval [id number] 06/15/2015 06/15/2015 Ace Singh MD otezla approval [id number] 06/15/2015 06/15/2015 Ace Singh MD otezla approval [id number] 06/15/2015 06/15/2015 Ace Singh MD otezla approval [id number] 06/15/2015 06/15/2015 Ace Singh MD otezla approval [id number] 06/15/2015 06/15/2015 Ace Singh MD otezla approval [id number] 06/15/2015 06/15/2015 Ace Singh MD [facility] approval [id number] 06/15/2015 06/15/2015 Ace Singh MD [facility] approval [id number] 06/15/2015 06/15/2015 Ace Singh MD [facility] approval [id number] 06/15/2015 06/15/2015 Ace Singh MD 1 month f/u [id number] 07/12/2015 07/12/2015 Ace Singh MD 1 month f/u [id number] 07/12/2015 07/12/2015 Ace Singh MD 1 month f/u [id number] 07/12/2015 07/12/2015 Ace Singh MD 1 month f/u [id number] 07/12/2015 07/12/2015 Ace Singh MD 1 month f/u [id number] 07/12/2015 07/12/2015 Ace Singh MD 1 month f/u [id number] 07/12/2015 07/12/2015 Ace Singh MD 1 month f/u [id number] 07/12/2015 07/12/2015 Ace Singh MD 1 month f/u [id number] 07/12/2015 07/12/2015 Ace Singh MD 1 month f/u [id number] 07/12/2015 07/12/2015 Ace Singh MD [id number] 07/12/2015 07/12/2015 Ace Singh MD [id number] 07/12/2015 07/12/2015 Ace Singh MD [id number] 07/12/2015 07/12/2015 Ace Singh MD [id number] 07/12/2015 07/12/2015 Ace Singh MD [id number] 07/12/2015 07/12/2015 Ace Singh MD [id number] 07/12/2015 07/12/2015 Ace Singh MD [id number] 07/12/2015 07/12/2015 Ace Singh MD [id number] 07/12/2015 07/12/2015 Ace Singh MD [id number] 07/12/2015 07/12/2015 Ace Singh MD [id number] 07/12/2015 07/12/2015 Ace Singh MD [id number] 07/12/2015 07/12/2015 Ace Singh MD [facility] [id number] 07/13/2015 07/13/2015 Ace Singh MD Refill- [facility] [id number] 07/13/2015 07/13/2015 Ace Singh MD Refill- [facility] [id number] 07/13/2015 07/13/2015 Ace Singh MD Refill- [facility] [id number] 07/13/2015 07/13/2015 Ace Singh MD Refill- [facility] [id number] 07/13/2015 07/13/2015 Ace Singh MD Refill- [facility] [id number] 07/13/2015 07/13/2015 Ace Singh MD Refill- [facility] [id number] 07/13/2015 07/13/2015 Ace Singh MD Refill- [facility] [id number] 07/13/2015 07/13/2015 Ace Singh MD Refill- [facility] [id number] 07/13/2015 07/13/2015 Ace Singh MD Refill- [facility] [id number] 07/13/2015 07/13/2015 Ace Singh MD [facility] [id number] 07/17/2015 07/17/2015 Ace Singh MD MEDICATION [id number] 07/17/2015 07/17/2015 Ace Singh MD MEDICATION [id number] 07/17/2015 07/17/2015 Ace Singh MD MEDICATION [id number] 07/17/2015 07/17/2015 Ace Singh MD MEDICATION [id number] 07/17/2015 07/17/2015 Ace Singh MD MEDICATION [id number] 07/17/2015 07/17/2015 Ace Singh MD MEDICATION [id number] 07/17/2015 07/17/2015 Ace Singh MD MEDICATION [id number] 07/17/2015 07/17/2015 Ace Singh MD vit d [id number] 07/25/2015 07/25/2015 Ace Singh MD vit d [id number] 07/25/2015 07/25/2015 Ace Singh MD vit d [id number] 07/25/2015 07/25/2015 Ace Singh MD vit d [id number] 07/25/2015 07/25/2015 Ace Singh MD vit d [id number] 07/25/2015 07/25/2015 Ace Singh MD vit d [id number] 07/25/2015 07/25/2015 Ace Singh MD vit d [id number] 07/25/2015 07/25/2015 Ace Singh MD 1 month f/u [id number] 08/10/2015 08/10/2015 Ace Singh MD 1 month f/u [id number] 08/10/2015 08/10/2015 Ace Singh MD 1 month f/u [id number] 08/10/2015 08/10/2015 Ace Singh MD 1 month f/u [id number] 08/10/2015 08/10/2015 Ace Singh MD 1 month f/u [id number] 08/10/2015 08/10/2015 Ace Singh MD 1 month f/u [id number] 08/10/2015 08/10/2015 [facility] [id number] 09/11/2015 09/11/2015 MD [facility] [id number] 09/11/2015 09/11/2015 MD [facility] [id number] 09/11/2015 09/11/2015 MD [facility] [id number] 09/11/2015 09/11/2015 MD [facility] [id number] 09/11/2015 09/11/2015 MD Samuel Verduzco pt assistance [id number] 09/18/2015 09/18/2015 MD [facility] Verduzco pt assistance [id number] 09/18/2015 09/18/2015 MD [facility] Verduzco pt assistance [id number] 09/18/2015 09/18/2015 MD [facility] Verduzco pt assistance [id number] 09/18/2015 09/18/2015 Ace Singh MD 3 MTH FU/hands [id number] 11/09/2015 11/09/2015 Ace Singh MD 3 MTH FU/hands [id number] 11/09/2015 11/09/2015 Ace Singh MD 3 MTH FU/hands [id number] 11/09/2015 11/09/2015 Ace Singh MD [facility] [id number] 01/25/2016 01/25/2016 Ace Singh MD PT IN HOSPITAL [id number] 01/25/2016 01/25/2016 Ace Snigh MD 10 wk follow up [id number] 02/20/2016 02/20/2016 Ace Singh Procedures Procedure Code Date Perfomer Comments Source
--- OUTSIDE RECORDS SUMMARY | 2017-12-09 12:36 | XMS REPORT ---
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
--- OUTSIDE RECORDS SUMMARY | 2017-12-09 12:36 | XMS REPORT ---
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
--- OUTSIDE RECORDS SUMMARY | 2017-12-09 12:36 | XMS REPORT ---
Author Author Herbert Singh [facility] eClinicalWorks Address Unknown Phone Unavailable Care Team Providers Care Frame Straightener Name Role Phone Herbert Singh CP Unavailable Encounters Encounter Location Date torodol injection Herbert Singh MD Dec 07, 2013 burstits Herbert Singh MD Oct 21, 2013 R HAND PAIN Herbert Singh MD Nov 28, 2014 Update Herbert Singh MD Dec 15, 2014 f/u Herbert Singh MD August 03, 2013 LEFLUNOMIDE REFILL Herbert Singh MD Mar 30, 2015 Unknown Herbert Singh MD Oct 01, 2013 Unknown Herbert Singh MD Mar 30, 2015 Arava Herbert Singh MD Nov 10, 2013 DEXA Herbert Singh MD Mar 26, 2015 PAIN Herbert Singh MD Feb 06, 2015 ALL JOINTS HURT Herbert Singh MD Feb 06, 2015 Problems Problem Type Condition ICD-9 Code Onset Dates Condition Status Problem Bursitis, Hip 726.5 Active Problem Lumbago 724.2 Active Problem Osteopenia 733.90 Active Problem 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 Are you a:: former smoker , How long has it been since you last smoked?: > 10 years Mar 27, 2015 Marital Status: . Mar 27, 2015 Caffeine: yes. frequency:, 1-5 Mar 27, 2015 Exercise: no. Mar 27, 2015 Alcohol: no. 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
--- OUTSIDE RECORDS SUMMARY | 2017-12-09 12:36 | XMS REPORT ---
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 Z79.899 Active Assessment Psoriasis L40.9 Active Assessment Osteoporosis M81.0 Active Problem Osteoporosis M81.0 Active Problem Psoriasis vulgaris L40.0 Active Problem Psoriasis L40.9 Active Problem Vitamin D deficiency E55.9 Active Assessment 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 Problem Other half-way (current) drug therapy Z79.899 Active Problem 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 Medications Medication Code System Code Instructions Start Date End Date Status Dosage Tramadol HCl [facility] [address]-91 50 MG Orally prn Active 1 tablet Ropinirole HCl [facility] [address]-18 1 MG Orally Once a day Active 1 tablet 1 to 3 hours before bedtime Tylenol Arthritis Pain [facility] [address]-22 650 MG Orally as needed Active 1 tablet as needed Lumigan [facility] [address]-72 0.03 % Ophthalmic Once a day Active 1 drop into affected eye every evening Olux [facility] [address]-33 0.05 % Externally Twice a day May 20, 2016 Feb 14, 2017 Active 1 application to affected area Clobetasol Propionate [facility] [address]-49 0.05 % Externally Twice a day Nov 16, 2016 Active 1 application to affected area Otezla [facility] [address]-64 30 MG Orally Twice a day July 13, 2015 Active 1 tablet Vitamin D (Ergocalciferol) [facility] 80098400846 63994 UNIT Orally once a week Active take 1 capsule one time weekly Lisinopril [facility] [address]-29 20 MG Orally Once a day Active 1 tablet Mometasone Furoate [facility] [address]-84 0.1 % Externally Twice a day May 28, 2016 Active 1 application to affected area Vital Signs Date/Time: August 13, 2016 BMI 27.04 Index Weight 129.4 lbs Height 58 in Temperature 96.4 F Cardiac Monitoring Heart Rate 72 /min Blood Pressure Diastolic 60 mm Hg Blood Pressure Systolic 140 mm Hg Results No Known Results Summary Purpose eClinicalWorks Submission
--- OUTSIDE RECORDS SUMMARY | 2017-12-09 12:36 | XMS REPORT ---
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
--- OUTSIDE RECORDS SUMMARY | 2017-12-09 12:36 | XMS REPORT ---
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 Medications Medication Code System Code Instructions Start Date End Date Status Dosage Otezla [facility] [address]-69 30 MG Orally Twice a day July 13, 2015 Active 1 tablet Tylenol Arthritis Pain [facility] [address]-39 650 MG Orally as needed Active 1 tablet as needed Mometasone Furoate [facility] [address]-20 0.1 % Externally Twice a day May 28, 2016 Active 1 application to affected area Ropinirole HCl [facility] [address]-80 1 MG Orally Once a day Active 1 tablet 1 to 3 hours before bedtime Lumigan [facility] [address]-06 0.03 % Ophthalmic Once a day Active 1 drop into affected eye every evening Lisinopril [facility] [address]-79 20 MG Orally Once a day Active 1 tablet Clobetasol Propionate [facility] [address]-36 0.05 % Externally Twice a day Nov 16, 2016 Active 1 application to affected area Olux [facility] [address]-69 0.05 % Externally Twice a day May 20, 2016 Feb 14, 2017 Active 1 application to affected area Tramadol HCl [facility] [address]-11 50 MG Orally Active as directed Vitamin D (Ergocalciferol) [facility] 79603153355 88468 UNIT Orally once a week Active take 1 capsule one time weekly Results No Known Results Summary Purpose eClinicalWorks Submission
--- OUTSIDE RECORDS SUMMARY | 2017-12-09 12:36 | XMS REPORT ---
Author Author Herbert Singh [facility] eClinicalWorks Address Unknown Phone Unavailable Care Team Providers Care Field Service Specialist Name Role Phone Herbert Singh CP Unavailable Allergies, Adverse Reactions, Alerts Substance Reaction Event Type Plaquenil Info Not Available Drug Allergy Leflunomide Info Not Available Drug Allergy Sulfa Info Not Available Non Drug Allergy Potassium hyperkalemia Non Drug Allergy Problems Problem Type Condition Code Onset Dates Condition Status Assessment Other nursing home (current) drug therapy Z79.899 Active Assessment Osteoporosis M81.0 Active Assessment Osteoarthritis M19.90 Active Assessment Psoriasis L40.9 Active Problem Psoriasis L40.9 Active Problem Osteoporosis M81.0 Active Problem Osteoarthritis M19.90 Active Problem Vitamin D deficiency E55.9 Active Assessment 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 42681366512 40 MG/0.8ML Subcutaneous once every 2 weeks May 08, 2017 Active 0.8 ml Ropinirole HCl [facility] 67265872264 1 MG Orally Once a day Active 1 tablet 1-3 hrs before bedtime Clobetasol Propionate ND 08445094856 0.05 % Externally Twice a day Active 1 application to affected area Calcium 600 ND 73619680843 600 MG Orally twice a day OTC Mar 13, 2017 Active 1 tab Lisinopril ND 98628947130 20 MG Orally Once a day Active 1 tablet Tramadol HCl ND 74952217548 50 MG Orally Active as directed Vitamin D (Ergocalciferol) [facility] 69309352984 76589 UNIT Active TAKE 1 CAPSULE ONE TIME WEEKLY Tylenol Arthritis Pain ND 01594324892 650 MG Orally as needed Active 1 tablet as needed Otezla [facility] 85303983170 30 MG Orally Twice a day July 13, 2015 Active 1 tablet Lumigan [facility] 91763270062 0.03 % Ophthalmic Once a day Active 1 drop into affected eye every evening Vital Signs Date/Time: May 08, 2017 BMI 28.21 Index Weight 135 lbs Height 58 in Temperature 97.6 F Cardiac Monitoring Heart Rate 78 /min Blood Pressure Diastolic 58 mm Hg Blood Pressure Systolic 112 mm Hg Results No Known Results Summary Purpose eClinicalWorks Submission
--- OUTSIDE RECORDS SUMMARY | 2017-12-09 12:36 | XMS REPORT ---
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
--- OUTSIDE RECORDS SUMMARY | 2017-12-09 12:36 | XMS REPORT ---
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 Active Problem Psoriasis 696.1 Active Assessment 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 Assessment Lumbago 724.2 Active Assessment Bursitis, Hip 726.5 Active Problem Unspecified vitamin D deficiency 268.9 Active Problem Lumbago 724.2 Active Problem Osteopenia 733.90 Active Problem 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 Problem Osteoarthrosis, 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 Active Problem Osteopenia 733.90 Active Problem Bursitis, Hip 726.5 Active Medications Medication Code System Code Instructions Start Date End Date Status Dosage Alendronate Sodium [facility] [address]-99 70 MG Orally once a week Active 1 tablet Crestor [facility] [address]-43 Pt unsure of dose Orally Once a day Active 1 tablet Leflunomide [facility] [address]-52 20 MG Orally Once a day Active 1 tablet Tramadol HCl [facility] [address]-27 50 MG Orally every 8 hrs Active 1 tablet as needed Lumigan [facility] [address]-65 0.03 % Ophthalmic Once a day Active 1 drop into affected eye every evening Lisinopril [facility] [address]-98 20 MG Orally Once a day Active 1 tablet Social History Social History Element Qualifiers Date Reported Tobacco Use: . Are you a:: never smoker August 03, 2013 Marital Status: . August 03, 2013 Caffeine: yes. frequency:, 1-5 August 03, 2013 Exercise: no. August 03, 2013 Alcohol: no. 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 August 03, 2013 Vital Signs Date/Time: August 03, 2013 Weight 143 lbs Height 58 in Temperature 97.6 F Cardiac Monitoring Heart Rate 84 /min Blood Pressure Diastolic 52 mm Hg Blood Pressure Systolic 116 mm Hg Results CBC (INCLUDES DIFF/PLT) ABSOLUTE LYMPHOCYTES(-850-3900 cells/uL) 1939 ABSOLUTE NEUTROPHILS(-5836-6109 cells/uL) 6163 BASOPHILS(- %) 0.5 HEMOGLOBIN(-11.7-15.5 g/dL) 11.2 EOSINOPHILS(- %) 5.1 HEMATOCRIT(-35.0-45.0 %) 34.3 MONOCYTES(- %) 10.0 MCV(-80.0-100.0 fL) 95.6 LYMPHOCYTES(- %) 20.2 MCH(-27.0-33.0 pg) 31.4 NEUTROPHILS(- %) 64.2 MCHC(-32.0-36.0 g/dL) 32.8 ABSOLUTE BASOPHILS(-0-200 cells/uL) 48 RDW(-11.0-15.0 %) 15.3 WHITE BLOOD CELL COUNT(-3.8-10.8 Thousand/uL) 9.6 PLATELET COUNT(-140-400 Thousand/uL) 235 ABSOLUTE EOSINOPHILS(-15-500 cells/uL) 490 RED BLOOD CELL COUNT(-3.80-5.10 Million/uL) 3.58 ABSOLUTE MONOCYTES(-200-950 cells/uL) 960 SED RATE BY MODIFIED WESTERGREN SED RATE BY MODIFIED WESTERGREN(-< OR=30 mm/h) 20 COMPREHENSIVE METABOLIC PANEL W/EGFR ALBUMIN/GLOBULIN RATIO(-1.0-2.5 (calc)) 1.6 GLOBULIN(-1.9-3.7 g/dL (calc)) 2.2 ALKALINE PHOSPHATASE(-33-130 U/L) 75 BILIRUBIN, TOTAL(-0.2-1.2 mg/dL) 0.3 CHLORIDE(-98-110 mmol/L) 107 ALT(-6-29 U/L) 13 POTASSIUM(-3.5-5.3 mmol/L) 4.3 AST(-10-35 U/L) 16 SODIUM(-135-146 mmol/L) 141 BUN/CREATININE RATIO(-6-22 (calc)) 13 eGFR (-> OR=60 mL/min/1.73m2) 50 CALCIUM(-8.6-10.4 mg/dL) 8.3 CARBON DIOXIDE(-19-30 mmol/L) 25 ALBUMIN(-3.6-5.1 g/dL) 3.6 PROTEIN, TOTAL(-6.1-8.1 g/dL) 5.8 GLUCOSE(-65-99 mg/dL) 98 UREA NITROGEN (BUN)(-7-25 mg/dL) 16 CREATININE(-0.60-0.93 mg/dL) 1.23 eGFR NON-AFR. BAHRAINI(-> OR=60 mL/min/1.73m2) 43 C-REACTIVE PROTEIN C-REACTIVE PROTEIN(-<0.80 mg/dL) 0.15 Summary Purpose eClinicalWorks Submission
--- OUTSIDE RECORDS SUMMARY | 2017-12-09 12:36 | XMS REPORT ---
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
--- OUTSIDE RECORDS SUMMARY | 2017-12-09 12:36 | XMS REPORT ---
Author Author Evie Roblero [facility] eClinicalWorks Address Unknown Phone Unavailable Care Team Providers Care Pl Sql Developer Name Role Phone Evie Roblero Unavailable Allergies, Adverse Reactions, Alerts Substance Reaction Event Type Plaquenil Info Not Available Drug Allergy Leflunomide Info Not Available Drug Allergy Sulfa Info Not Available Non Drug Allergy Potassium hyperkalemia Non Drug Allergy Problems Problem Type Condition Code Onset Dates Condition Status Assessment Psoriasis L40.9 Active Assessment Other [facility] (current) drug therapy Z79.899 Active Problem Psoriasis L40.9 Active Problem Osteoporosis M81.0 Active Problem Osteoarthritis M19.90 Active Problem Vitamin D deficiency E55.9 Active Assessment 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 Problem Other 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 (current) drug therapy Z79.899 Active Problem 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 Medications Medication Code System Code Instructions Start Date End Date Status Dosage Vitamin D (Ergocalciferol) [facility] 90552750748 20526 UNIT Active TAKE 1 CAPSULE ONE TIME WEEKLY Tylenol Arthritis Pain ND 98218439855 650 MG Orally as needed Active 1 tablet as needed Tramadol HCl ND 17751706727 50 MG Orally Active as directed Lisinopril ND 50711558374 20 MG Orally Once a day Active 1 tablet Otezla [facility] 98382589968 30 MG Orally Twice a day July 13, 2015 Active 1 tablet Calcium 600 ND 87007613222 600 MG Orally twice a day OTC Mar 13, 2017 Active 1 tab Lumigan [facility] 70907949680 0.03 % Ophthalmic Once a day Active 1 drop into affected eye every evening Clobetasol Propionate ND 15070152957 0.05 % Externally Twice a day Active 1 application to affected area Humira Pen [facility] 29246504728 40 MG/0.8ML Subcutaneous once every 2 weeks May 08, 2017 Active 0.8 ml Ropinirole HCl [facility] 51574220074 1 MG Orally Once a day Active 1 tablet 1-3 hrs before bedtime Vital Signs Date/Time: Oct 16, 2017 BMI 28.48 Index Weight 136.3 lbs Height 58 in Temperature 97.3 F Cardiac Monitoring Heart Rate 82 /min Blood Pressure Diastolic 62 mm Hg Blood Pressure Systolic 130 mm Hg Results Name Result Date Reference Range Unit Abnormality Flag 1055 SEDIMENTATION RATE ----SEDIMENTATION RATE 42 [id number] 0-20 MM/HOUR H 9179 COMPREHENSIVE METABOLIC PANEL ----CALC A/G RATIO 2.0 [id number] 1.0-2.6 RATIO ----CALC GLOBULIN 2.2 [id number] 1.9-3.7 G/DL ----ALKALINE PHOSPHATASE 74 91746714 40-142 U/L ----BILIRUBIN, TOTAL <0.2 61933600 <=1.2 MG/DL ----CHLORIDE 103 57178303 95-107 MEQ/L ----ALT 11 33532151 5-40 U/L ----POTASSIUM 4.9 [id number] 3.5-5.4 MEQ/L ----AST 18 47761780 9-40 U/L ----SODIUM 144 97599840 133-146 MEQ/L ----CALC BUN/CREAT 11 15818083 6-28 RATIO ---- eGFR NON- AMER. 44 [id number] >60 ML/MIN/1.73 L ----CALCIUM 8.7 [id number] 8.5-10.5 MG/DL ----CARBON DIOXIDE 29 47095803 19-31 MEQ/L ----ALBUMIN 4.4 87620528 3.5-5.2 G/DL ----PROTEIN, TOTAL 6.6 [id number] 6.1-8.3 G/DL ----GLUCOSE 87 88586388 70-99 MG/DL ----BUN 13 05228371 8-23 MG/DL ----CREATININE 1.18 [id number] 0.60-1.30 MG/DL ---- eGFR AMER. 51 [id number] >60 ML/MIN/1.73 L 5083 HIGH SENSITIVITY CRP ----HIGH SENSITIVITY CRP 2.2 [id number] SEE BELOW MG/L Summary Purpose eClinicalWorks Submission
--- OUTSIDE RECORDS SUMMARY | 2017-12-09 12:36 | XMS REPORT ---
Author Author Herbert Singh [facility] eClinicalWorks Address Unknown Phone Unavailable Care Team Providers Care Brazing Machine Operator Automatic Name Role Phone Herbert Singh CP Unavailable Encounters Encounter Location Date torodol injection Herbert Singh MD Dec 07, 2013 burstits Herbert Singh MD Oct 21, 2013 R HAND PAIN Herbert Singh MD Nov 28, 2014 Update Herbert Singh MD Dec 15, 2014 f/u Herbert Singh MD August 03, 2013 Unknown Herbert Singh MD Oct 01, 2013 Arava Herbert Singh MD Nov 10, 2013 PAIN Herbert Singh MD Feb 06, 2015 ALL JOINTS HURT Herbert Singh MD Feb 06, 2015 Problems Problem Type Condition ICD-9 Code Onset Dates Condition Status Problem Bursitis, Hip 726.5 Active Problem Lumbago 724.2 Active Problem Osteopenia 733.90 Active Problem Other group home (current) drug therapy Z79.899 Active Problem [...] since you last smoked?: > 10 years Nov 28, 2014 Marital Status: . Nov 28, 2014 Caffeine: yes. frequency:, 1-5 Nov 28, 2014 Exercise: no. Nov 28, 2014 Alcohol: no. 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
--- OUTSIDE RECORDS SUMMARY | 2017-12-09 12:36 | XMS REPORT ---
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
--- OUTSIDE RECORDS SUMMARY | 2017-12-09 12:36 | XMS REPORT ---
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
--- OUTSIDE RECORDS SUMMARY | 2017-12-09 12:36 | XMS REPORT ---
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 Are you a:: former smoker , How long has it been since you last smoked?: > 10 years Oct 21, 2013 Marital Status: . Oct 21, 2013 Caffeine: yes. frequency:, 1-5 Oct 21, 2013 Exercise: no. Oct 21, 2013 Alcohol: no. 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
--- OUTSIDE RECORDS SUMMARY | 2017-12-09 12:36 | XMS REPORT ---
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
--- OUTSIDE RECORDS SUMMARY | 2017-12-09 12:36 | XMS REPORT ---
Author Author Herbert Singh eClinicalWorks Address Unknown Phone Unavailable Care Team Providers Care Leveler Helper Name Role Phone Herbert Singh CP Unavailable [...] Active Problem Osteopenia 733.90 Active Problem Other oil heaterman (current) drug therapy Z79.899 Active Problem Other [...]
--- OUTSIDE RECORDS SUMMARY | 2017-12-09 12:36 | XMS REPORT ---
Author Author Herbert Singh [facility] [place] eClinicalWorks Address Unknown Phone Unavailable Care Team Providers Care Beater Out Name Role Phone Herbert Singh CP Unavailable [...] Active Problem Osteopenia 733.90 Active Problem Other medical terminologist (current) drug therapy Z79.899 Active Problem Other [...]
--- OUTSIDE RECORDS SUMMARY | 2017-12-09 12:36 | XMS REPORT ---
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
--- OUTSIDE RECORDS SUMMARY | 2017-12-09 12:36 | XMS REPORT ---
Author Author Evie Roblero [facility] eClinicalWorks Address Unknown Phone Unavailable Care Team Providers Care Vp Lab Name Role Phone Evie Roblero Unavailable Allergies, Adverse Reactions, Alerts Substance Reaction Event Type Plaquenil Info Not Available Drug Allergy Sulfa Info Not Available Non Drug Allergy Potassium hyperkalemia Non Drug Allergy Problems Problem Type Condition Code Onset Dates Condition Status Assessment Osteoporosis M81.0 Active Assessment Other prison (current) drug therapy Z79.899 Active Assessment Psoriasis vulgaris L40.0 Active Problem Osteoporosis M81.0 Active Problem Psoriasis vulgaris L40.0 Active Problem Psoriasis L40.9 Active Problem Vitamin D deficiency E55.9 Active Assessment 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 Problem Other prison (current) drug therapy Z79.899 Active Problem 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 Medications Medication Code System Code Instructions Start Date End Date Status Dosage Tylenol Arthritis Pain [facility] [address]-55 650 MG Orally as needed Active 1 tablet as needed Clobetasol Propionate [facility] [address]-26 0.05 % Externally Twice a day Nov 16, 2016 Active 1 application to affected area Lumigan [facility] [address]-79 0.03 % Ophthalmic Once a day Active 1 drop into affected eye every evening Tramadol HCl [facility] [address]-78 50 MG Orally Active as directed Otezla [facility] [address]-14 30 MG Orally Twice a day July 13, 2015 Active 1 tablet Ropinirole HCl [facility] [address]-79 1 MG Orally Once a day Active 1 tablet 1 to 3 hours before bedtime Lisinopril [facility] [address]-31 20 MG Orally Once a day Active 1 tablet Olux [facility] [address]-05 0.05 % Externally Twice a day May 20, 2016 Feb 14, 2017 Active 1 application to affected area Vitamin D (Ergocalciferol) [facility] 46600032094 80705 UNIT Orally once a week Active take 1 capsule one time weekly Vital Signs Date/Time: May 20, 2016 BMI 28.63 Index Weight 137 lbs Height 58 in Temperature 97.0 F Cardiac Monitoring Heart Rate 76 /min Blood Pressure Diastolic 58 mm Hg Blood Pressure Systolic 138 mm Hg Results No Known Results Summary Purpose eClinicalWorks Submission
--- OUTSIDE RECORDS SUMMARY | 2017-12-09 12:36 | XMS REPORT ---
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
--- OUTSIDE RECORDS SUMMARY | 2017-12-09 12:36 | XMS REPORT ---
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
--- OUTSIDE RECORDS SUMMARY | 2017-12-09 12:36 | XMS REPORT ---
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
--- OUTSIDE RECORDS SUMMARY | 2017-12-09 12:36 | XMS REPORT ---
Author Author Shane Monroy Organization eClinicalWorks Address Unknown Phone Unavailable Care Team Providers Care Electric Tape Slitter Name Role Phone Shane Monroy Unavailable Allergies, Adverse Reactions, Alerts Substance Reaction Event Type Plaquenil Info Not Available Drug Allergy Leflunomide Info Not Available Drug Allergy Sulfa Info Not Available Non Drug Allergy Potassium hyperkalemia Non Drug Allergy Problems Problem Type Condition Code Onset Dates Condition Status Assessment Osteoporosis M81.0 Active Assessment Vitamin D deficiency E55.9 Active Problem Osteoporosis M81.0 Active Problem Other [facility] (current) drug therapy Z79.899 Active Problem Psoriasis L40.9 Active Assessment Other [facility] (current) drug therapy Z79.899 Active Assessment 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 Problem 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 Problem Vitamin D deficiency E55.9 Active Medications Medication Code System Code Instructions Start Date End Date Status Dosage Lumigan [place] 78904836721 0.03 % Ophthalmic Once a day Active 1 drop into affected eye every evening Olux ND 95111443951 0.05 % Externally Twice a day May 20, 2016 Active 1 application to affected area PredniSONE ND 48273876615 5 MG Orally Once a day Dec 06, 2016 Active 1 tablet Clobetasol Propionate ND 20306929601 0.05 % Externally Twice a day Active 1 application to affected area Ropinirole HCl ND 55773450518 1 MG Active TAKE 1 TABLET ONE TIME DAILY 1 TO 3 HOURS BEFORE BEDTIME Calcium 600 ND 48675251795 600 MG Orally twice a day OTC Mar 13, 2017 Active 1 tab Tramadol HCl ND 80043387963 50 MG Orally Active as directed Mometasone Furoate ND 10383298188 0.1 % Externally Twice a day May 28, 2016 Active 1 application to affected area Tylenol Arthritis Pain ND 46085787237 650 MG Orally as needed Active 1 tablet as needed Otezla [facility] 29848404683 30 MG Orally Twice a day July 13, 2015 Active 1 tablet Vitamin D (Ergocalciferol) [facility] 73672890011 14144 UNIT Active TAKE 1 CAPSULE ONE TIME WEEKLY Lisinopril [facility] 70596563143 20 MG Orally Once a day Active 1 tablet Humira [facility] 41642943547 40 MG/0.8ML Subcutaneous every other week Nov 12, 2016 Mar 13, 2017 Inactive 0.8 ml Prednisone Taper [facility] 46127893080 5mg orally q am with food Nov 12, 2016 Active 3 tablets for 5 days, 2 tablets for 5 days and then 1 tablet for 5 days Vital Signs Date/Time: Mar 13, 2017 BMI 29.71 Index Weight 137.3 lbs Height 57 in Temperature 95.6 F Cardiac Monitoring Heart Rate 80 /min Blood Pressure Diastolic 54 mm Hg Blood Pressure Systolic 110 mm Hg Results No Known Results Summary Purpose eClinicalWorks Submission
--- OUTSIDE RECORDS SUMMARY | 2017-12-09 12:36 | XMS REPORT ---
Author Author Herbert Singh [facility] eClinicalWorks Address Unknown Phone Unavailable Care Team Providers Care Lift Team Technician Name Role Phone Herbert Singh Unavailable Encounters Encounter Location Date f/u Herbert Singh [...]
--- OUTSIDE RECORDS SUMMARY | 2017-12-09 12:36 | XMS REPORT ---
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
--- OUTSIDE RECORDS SUMMARY | 2017-12-09 12:36 | XMS REPORT ---
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 Are you a:: never smoker August 03, 2013 Marital Status: . August 03, 2013 Caffeine: yes. frequency:, 1-5 August 03, 2013 Exercise: no. August 03, 2013 Alcohol: no. 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
--- OUTSIDE RECORDS SUMMARY | 2017-12-09 12:36 | XMS REPORT ---
Author Author Herbert Singh [facility] eClinicalWorks Address Unknown Phone Unavailable Care Team Providers Care Date Night Caregiver Name Role Phone Herbert Singh CP Unavailable Allergies, Adverse Reactions, Alerts Substance Reaction Event Type Plaquenil Info Not Available Drug Allergy Sulfa Info Not Available Non Drug Allergy Potassium hyperkalemia Non Drug Allergy Problems Problem Type Condition Code Onset Dates Condition Status Assessment Vitamin D deficiency E55.9 Active Assessment Osteoporosis M81.0 Active Assessment Other senior living (current) drug therapy Z79.899 Active Problem Osteoporosis M81.0 Active Problem Other senior living (current) drug therapy Z79.899 Active Problem Psoriasis L40.9 Active Assessment 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 Assessment Psoriasis L40.9 Active Problem 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 Problem Vitamin D deficiency E55.9 Active Medications Medication Code System Code Instructions Start Date End Date Status Dosage Tramadol HCl [facility] [address]-46 50 MG Orally Active as directed Clobetasol Propionate [facility] [address]-28 0.05 % Externally Twice a day Active 1 application to affected area Lisinopril [facility] [address]-77 20 MG Orally Once a day Active 1 tablet Vitamin D (Ergocalciferol) [facility] 25498873582 84268 UNIT Active TAKE 1 CAPSULE ONE TIME WEEKLY Mometasone Furoate [facility] [address]-40 0.1 % Externally Twice a day May 28, 2016 Active 1 application to affected area Tylenol Arthritis Pain [facility] [address]-04 650 MG Orally as needed Active 1 tablet as needed Otezla [facility] [address]-15 30 MG Orally Twice a day July 13, 2015 Active 1 tablet Prednisone Taper [facility] [address]334[address]-79 5mg orally q am with food Nov 12, 2016 Active 3 tablets for 5 days, 2 tablets for 5 days and then 1 tablet for 5 days Humira [facility] [address]-59 40 MG/0.8ML Subcutaneous every other week Nov 12, 2016 Active 0.8 ml Ropinirole HCl [facility] 51321974442 1 MG Active TAKE 1 TABLET ONE TIME DAILY 1 TO 3 HOURS BEFORE BEDTIME Olux [facility] [address]-86 0.05 % Externally Twice a day May 20, 2016 Active 1 application to affected area Arcelia [facility] [address]-07 0.03 % Ophthalmic Once a day Active 1 drop into affected eye every evening Vital Signs Date/Time: Nov 12, 2016 BMI 27.79 Index Weight 133 lbs Height 58 in Temperature 97.3 F Cardiac Monitoring Heart Rate 80 /min Blood Pressure Diastolic 64 mm Hg Blood Pressure Systolic 132 mm Hg Results No Known Results Summary Purpose eClinicalWorks Submission
--- OUTSIDE RECORDS SUMMARY | 2017-12-09 12:37 | XMS REPORT ---
Author Author Evie Roblero [facility] eClinicalWorks Address Unknown Phone Unavailable Care Team Providers Care Microsystems Engineer Name Role Phone Evie Roblero Unavailable Allergies, Adverse Reactions, Alerts Substance Reaction Event Type Plaquenil Info Not Available Drug Allergy Sulfa Info Not Available Non Drug Allergy Potassium hyperkalemia Non Drug Allergy Encounters Encounter Location Date torodol injection Herbert Singh MD Dec 07, 2013 burstits Herbert Singh MD Oct 21, 2013 R HAND PAIN Herbert Singh MD Nov 28, 2014 Update Herbert Singh MD Dec 15, 2014 f/u Herbert Singh MD August 03, 2013 Unknown Herbert Singh MD Oct 01, 2013 Arava Herbert Singh MD Nov 10, 2013 DEXA Herbert Singh MD Mar 26, 2015 1 month f/u Herbert Singh MD July 12, 2015 Refill- Otezla Herbert Singh MD July 13, 2015 PAIN Herbert Singh MD Feb 06, 2015 ALL JOINTS HURT Herbert Singh MD Feb 06, 2015 davion Singh MD June 08, 2015 6 WK FU Herbert Singh MD June 07, 2015 6 WK FU Herbert Singh MD Mar 27, 2015 otezla approval Herbert Singh MD June 15, 2015 MEDICATION Herbert Singh MD July 17, 2015 RX REFILL Herbert Singh MD Apr 11, 2015 vit d Herbert Singh MD July 25, 2015 Davion Singh MD June 07, 2015 1 month f/u Herbert Singh MD August 10, 2015 LEFLUNOMIDE REFILL Herbert Singh MD Mar 30, 2015 Unknown Herbert Singh MD Mar 30, 2015 JOHN Singh MD July 12, 2015 Problems Problem Type Condition ICD-9 Code Onset Dates Condition Status Assessment Osteoporosis M81.0 Active Assessment Psoriasis vulgaris L40.0 Active Assessment Other [facility] (current) drug therapy Z79.899 Active Assessment Vitamin D deficiency E55.9 Active Problem Psoriasis vulgaris L40.0 Active Problem 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.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 Active Problem Osteoporosis M81.0 Active Problem Vitamin D deficiency E55.9 Active Assessment 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 Problem 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 Problem 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 Medications Medication Code System Code Instructions Start Date End Date Status Dosage Clobetasol Propionate [facility] [address]-73 0.05 % Externally Twice a day Active 1 application to affected area Alendronate Sodium [facility] [address]-39 70 MG Orally once a week Active 1 tablet Tylenol Arthritis Pain [facility] [address]-97 650 MG Orally every 8 hrs Active 1 tablet as needed Tylenol/Codeine #3 [facility] [address]-48 300-30 MG Orally at night August 10, 2015 September 09, 2015 Active 1-2 tablets as needed Plaquenil [facility] [address]-08 200 MG Orally Twice a day Active 1 tablet with food or milk Otezla [facility] [address]-93 30 MG Orally Twice a day July 13, 2015 Active 1 tablet Lumigan [facility] [address]-94 0.03 % Ophthalmic Once a day Active 1 drop into affected eye every evening Vitamin D (Ergocalciferol) [facility] [address]-40 28457 UNIT Orally Once a week July 25, 2015 Active 1 capsule Lisinopril [facility] [address]-11 20 MG Orally Once a day Active 1 tablet Social History Social History Element Qualifiers Date Reported Tobacco Use: . Are you a:: former smoker , How long has it been since you last smoked?: > 10 years August 10, 2015 Marital Status: . August 10, 2015 Caffeine: yes. frequency:, 1-5 August 10, 2015 Exercise: no. August 10, 2015 Alcohol: no. 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
--- OUTSIDE RECORDS SUMMARY | 2017-12-09 12:37 | XMS REPORT ---
Author Author Herbert Singh eClinicalWorks Address Unknown Phone Unavailable Care Team Providers Care Customer Service Coordinator Name Role Phone Herbert Singh CP Unavailable Encounters Encounter Location Date DEXA Herbert Singh MD Mar 26, 2015 davion Singh MD June 08, 2015 6 WK FU Herbert Singh MD June 07, 2015 6 WK FU Herbert Singh MD Mar 27, 2015 otezla approval Herbert Singh MD June 15, 2015 RX REFILL Herbert Singh MD Apr 11, 2015 Davion Singh MD June 07, 2015 LEFLUNOMIDE REFILL Herbert Singh MD Mar 30, 2015 Unknown Herbert Singh MD Mar 30, 2015 FU Herbert Singh MD July 12, 2015 torodol injection Herbert Singh MD Dec 07, 2013 burstits Herbert Singh MD Oct 21, 2013 R HAND PAIN Herbert Singh MD Nov 28, 2014 Update Herbert Singh MD Dec 15, 2014 f/u Herbert Singh MD August 03, 2013 Unknown Herbert Singh MD Oct 01, 2013 Arava Herbert Singh MD Nov 10, 2013 1 month f/u Herbert Singh MD July 12, 2015 Refill- Samuel Singh MD July 13, 2015 PAIN Herbert Singh MD Feb 06, 2015 ALL JOINTS HURT Herbert Singh MD Feb 06, 2015 MEDICATION Herbert Singh MD July 17, 2015 vit d Herbert Singh MD July 25, 2015 1 month f/u Herbert Singh MD August 10, 2015 Otezla Herbert Singh MD September 11, 2015 Problems Problem Type Condition ICD-9 Code Onset Dates Condition Status Problem Psoriasis vulgaris L40.0 Active Problem Other 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 Are you a:: former smoker , How long has it been since you last smoked?: > 10 years September 11, 2015 Marital Status: . September 11, 2015 Caffeine: yes. frequency:, 1-5 September 11, 2015 Exercise: no. September 11, 2015 Alcohol: no. 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
--- OUTSIDE RECORDS SUMMARY | 2017-12-09 12:37 | XMS REPORT ---
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 Z79.899 Active Problem Osteoporosis M81.0 Active Problem Pain in joint, hand 719.44 Active Problem Osteopenia 733.90 Active Problem 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 Problem 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 Assessment Osteoporosis M81.0 Active Problem Psoriasis 696.1 Active Problem Osteoarthrosis, 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 Active Assessment Encounter for long-term (current) use of other high-risk medications Z79.899 Active Problem 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 Assessment 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 Problem Bursitis, Hip 726.5 Active Medications Medication Code System Code Instructions Start Date End Date Status Dosage Lumigan [facility] [address]-75 0.03 % Ophthalmic Once a day Active 1 drop into affected eye every evening Otezla [facility] [address]-93 30 MG Orally Twice a day June 07, 2015 September 05, 2015 Active 1 tablet Leflunomide [facility] [address]-38 10 MG Orally Once a day Active 1 tablet Alendronate Sodium [facility] [address]-39 70 MG Orally once a week June 07, 2015 Inactive 1 tablet Lisinopril [facility] [address]-48 20 MG Orally Once a day Active 1 tablet Protonix [facility] [address]-34 40 MG Orally Once a day Active 1 tablet Plaquenil [facility] [address]-82 200 MG Orally Twice a day Feb 09, 2015 August 08, 2015 Active 1 tablet with food or milk Dicyclomine HCl [facility] [address]-95 20 MG Orally Four times a day Active 1 tablet Omeprazole [facility] [address]-73 40 MG Orally Once a day Active 1 capsule Pravastatin Sodium [facility] [address]-85 40 MG Orally Once a day Active 1 tablet Ondansetron [facility] [address]-18 4 MG Orally every 8 hrs Active 1 tablet on the tongue and allow to dissolve Tramadol HCl [facility] [address]-54 50 MG Orally prn June 25, 2015 Active 1 tablet as needed Tylenol Arthritis Pain [facility] [address]-30 650 MG Orally every 8 hrs Active 1 tablet as needed Ropinirole HCl [facility] [address]-54 1 MG Orally Once a day Active 1 tablet 1 to 3 hours before bedtime Social History Social History Element Qualifiers Date Reported Tobacco Use: . Are you a:: former smoker , How long has it been since you last smoked?: > 10 years June 07, 2015 Marital Status: . June 07, 2015 Caffeine: yes. frequency:, 1-5 June 07, 2015 Exercise: no. June 07, 2015 Alcohol: no. 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
--- OUTSIDE RECORDS SUMMARY | 2017-12-09 12:37 | XMS REPORT ---
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 Are you a:: former smoker , How long has it been since you last smoked?: > 10 years July 14, 2015 Marital Status: . July 14, 2015 Caffeine: yes. frequency:, 1-5 July 14, 2015 Exercise: no. July 14, 2015 Alcohol: no. 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
--- OUTSIDE RECORDS SUMMARY | 2017-12-09 12:37 | XMS REPORT ---
Author Author Herbert Singh eClinicalWorks Address Unknown Phone Unavailable Care Team Providers Care Starting Sheet Tank Operator Name Role Phone Herbert Singh CP [...] HURT Herbert Singh MD Feb 06, 2015 Otezla pt assistance Herbert Singh MD September 18, 2015 3 MTH FU/hands Herbert Singh MD Nov 09, 2015 PT IN HOSPITAL Herbert Singh MD Jan 25, 2016 MEDICATION Herbert Singh MD July 17, 2015 vit d Herbert Singh MD July 25, 2015 1 month f/u Herbert Singh MD August 10, 2015 Samuel Singh MD September 11, 2015 Problems Problem Type Condition ICD-9 Code Onset Dates Condition Status Problem Osteoporosis M81.0 Active Problem Psoriasis vulgaris L40.0 Active Problem Psoriasis L40.9 Active Problem Vitamin D deficiency E55.9 Active Problem 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 Are you a:: former smoker , How long has it been since you last smoked?: > 10 years Nov 09, 2015 Marital Status: . Nov 09, 2015 Caffeine: yes. frequency:, 1-5 Nov 09, 2015 Exercise: no. Nov 09, 2015 Alcohol: no. 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
--- OUTSIDE RECORDS SUMMARY | 2017-12-09 12:37 | XMS REPORT ---
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
--- OUTSIDE RECORDS SUMMARY | 2017-12-09 12:37 | XMS REPORT ---
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
--- OUTSIDE RECORDS SUMMARY | 2017-12-09 12:37 | XMS REPORT ---
Author Author Herbert Singh eClinicalWorks Address Unknown Phone Unavailable Care Team Providers Care Health Technician Hearing Name Role Phone Herbert Singh CP Unavailable Allergies, Adverse Reactions, Alerts Substance Reaction Event Type Plaquenil Info Not Available Drug Allergy Sulfa Info Not Available Non Drug Allergy Potassium hyperkalemia Non Drug Allergy Encounters Encounter Location Date DEXA Herbert Singh MD Mar 26, 2015 quinton Singh MD June 08, 2015 6 WK [...] Herbert Singh MD Dec 15, 2014 f/u Hrebert Singh MD August 03, 2013 Unknown Herbert [...] FU/hands Herbert Singh MD Nov 09, 2015 MEDICATION Herbert Singh MD July 17, 2015 vit d Herbert Singh MD July 25, 2015 1 month f/u Herbert Singh MD August 10, 2015 Otcaitlin Singh MD September 11, 2015 Problems Problem Type Condition ICD-9 Code Onset Dates Condition Status Assessment Psoriasis L40.9 Active Assessment Osteoporosis M81.0 Active 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.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 Problem Osteoporosis M81.0 Active Problem Psoriasis vulgaris L40.0 Active Problem Psoriasis L40.9 Active Problem Vitamin D deficiency E55.9 Active Assessment 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 Problem Other [facility] (current) drug therapy Z79.899 Active Problem 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 Medications Medication Code System Code Instructions Start Date End Date Status Dosage Lisinopril [facility] [address]-53 20 MG Orally Once a day Active 1 tablet Lumigan [facility] [address]-99 0.03 % Ophthalmic Once a day Active 1 drop into affected eye every evening Clobetasol Propionate [facility] [address]-60 0.05 % Externally Twice a day Active 1 application to affected area Otezla [facility] [address]-60 30 MG Orally Twice a day July 13, 2015 Active 1 tablet Tylenol Arthritis Pain [facility] [address]-63 650 MG Orally as needed Active 1 tablet as needed Vitamin D (Ergocalciferol) [facility] [address]-02 75171 UNIT Orally Once a week July 25, [...] 2015 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 N[place]AR[place]AN(-> OR=60 mL/min/1.73m2) 31 ALKALINE PHOSPHATASE(-33-130 U/L) 69 eGFR (-> OR=60 mL/min/1.73m2) 36 BILIRUBIN, TOTAL(-0.2-1.2 mg/dL) 0.3 BUN/CREATININE RATIO(-6-22 (calc)) 12 ALBUMIN/GLOBULIN RATIO(-1.0-2.5 (calc)) 1.5 SODIUM(-135-146 mmol/L) 139 GLOBULIN(-1.9-3.7 g/dL (calc)) 2.6 POTASSIUM(-3.5-5.3 mmol/L) 4.4 GLUCOSE(-65-99 mg/dL) 100 CHLORIDE(-98-110 mmol/L) 105 ALBUMIN(-3.6-5.1 g/dL) 4.0 UREA NITROGEN (BUN)(-7-25 mg/dL) 19 PROTEIN, TOTAL(-6.1-8.1 g/dL) 6.6 SED RATE BY MODIFIED WESTERGREN SED RATE BY MODIFIED WESTERGREN(-< OR=30 mm/h) 15 C-REACTIVE PROTEIN C-REACTIVE PROTEIN(-<0.80 mg/dL) 0.13 CBC (INCLUDES DIFF/PLT) MCHC(-32.0-36.0 g/dL) 33.3 MCH(-27.0-33.0 pg) 28.7 PLATELET COUNT(-140-400 Thousand/uL) 209 RDW(-11.0-15.0 %) 15.6 BASOPHILS(- %) 0.8 ABSOLUTE NEUTROPHILS(-8425-6544 cells/uL) 2030 ABSOLUTE LYMPHOCYTES(-850-3900 cells/uL) 1944 MPV(-7.5-11.5 fL) 7.4 ABSOLUTE BASOPHILS(-0-200 cells/uL) 43 HEMATOCRIT(-35.0-45.0 %) 32.4 NEUTROPHILS(- %) 37.6 MCV(-80.0-100.0 fL) 86.2 RED BLOOD CELL COUNT(-3.80-5.10 Million/uL) 3.77 ABSOLUTE MONOCYTES(-200-950 cells/uL) 772 ABSOLUTE EOSINOPHILS(-15-500 cells/uL) 610 HEMOGLOBIN(-11.7-15.5 g/dL) 10.8 EOSINOPHILS(- %) 11.3 WHITE BLOOD CELL COUNT(-3.8-10.8 Thousand/uL) 5.4 LYMPHOCYTES(- %) 36.0 MONOCYTES(- %) 14.3 Immunizations Vaccine Administration Date Depomedrol Nov 09, 2015 Summary Purpose eClinicalWorks Submission
--- OUTSIDE RECORDS SUMMARY | 2017-12-09 12:37 | XMS REPORT ---
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
--- OUTSIDE RECORDS SUMMARY | 2017-12-09 12:37 | XMS REPORT ---
Author Author [facility] Address Unknown Phone Unavailable Care Team Providers Care Sales And Marketing Associate Name Role Phone PAULA HOLDER Unavailable Unavailable DIAN STANTON Unavailable Unavailable Problems This patient has no known problems. Allergies, Adverse Reactions, Alerts This patient has no known allergies or adverse reactions. Medications This patient has no known medications. Results Test Description Test Time Test Comments Text Results Atomic Results Result Comments CHEST 2 VIEWS 2017-12-09 09:35:00 [facility] [address] [address] Patient Name: EUN AMOS MR #: [id number] : 1940 Age/Sex: 77/F Req #: [id number] Adm Physician: Ordered by: PAULA HOLDER MD Report #: [id number] Location: [facility] Room/Bed: Procedure: [id number] DX/CHEST 2 VIEWS Exam Date: 12/08/17 Exam Time: 1652 REPORT STATUS: Signed EXAMINATION: PA and lateral views of the chest. COMPAR RELL: CT chest 06/21/2016 CLINICAL HISTORY: COPD, shortness of breath DISCUSSION: Lines/tubes: None. Lungs: Lungs are mildly hyperinflated, with increased lucency in the upper lungs, likely reflecting COPD changes. No consolidation or pulmonary edema. Pleura: Mild blunting of bilateral posterior costophrenic sulci. Heart and mediastinum: Cardiomediastinal silhouette is unremarkable. Pulmonary vasculature is normal. Bones and soft tissues: No acute bony abnormalities. Degenerative changes in the thoracic spine IMPRESSION: Mild blunting of bilateral posterior costophrenic sulci, which may reflect small volume pleural effusions versus pleural thickening. No consolidation or pulmonary edema. COPD changes Signed by: Dr. Tahira Little M.D. on 12/09/2017 9:36 AM Dictated By: TAHIRA LITTLE MD 5 Transcribed By: BRADLEY on 12/09/17935 COPY TO: PAULA HOLDER MD SMALL BOWEL SERIES [address] [address] Patient Name: EUN AMOS MR #: [id number] : 1940 Age/Sex: 76/F Req #: [id number] Adm Physician: Ordered by: DIAN STANTON MD Report #: [id number] Location: DX Room/Bed: Procedure: [id number] DX/SMALL BOWEL SERIES Exam Date: Exam Time: REPORT STATUS: Signed PROCEDURE: SMALL BOWEL SERIES INDICATION: Right lower quadrant pain COMPARISON: [facility], CT, CT ABDOMEN/PELVIS W, 06/17/2016, 11:10. TECHNIQUE: Routine single contrast small bowel follow-through. Fluoroscopy time: 0.6 minutes. Cumulative air kerma: 40.83 mGy. FINDINGS: Jejunum caliber and mucosal contour is normal. The distal ileum demonstrates mild with mucosal fold pattern thickening and relative loss of the number of folds. This is most notable in the region of the terminal ileum. No evidence of obstruction, stricture or fistula. No conspicuous filling defects to suggest mass. Transit time is normal at one hour. CONCLUSION: The distal ileum/terminal ileum demonstrates mucosal fold thickening and relative loss of the number of folds suggesting continued ileitis relative to May 2016. No evidence of obstruction, stricture or fistula. Dictated by: Dari Zhang M.D. on 10/15/2016 at 9:44 Electronically approved by: Dari Zhang M.D. on 10/15/2016 at 9:44 Dictated By: DARI ZHANG MD 3 Transcribed By: JUVENAL on 10/15/16943 COPY TO: DIAN STANTON MD
--- OUTSIDE RECORDS SUMMARY | 2017-12-09 12:37 | XMS REPORT ---
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
--- OUTSIDE RECORDS SUMMARY | 2017-12-09 12:37 | XMS REPORT ---
Author Author Evie Roblero [facility] eClinicalWorks Address Unknown Phone Unavailable Care Team Providers Care Electronics Research Engineer Name Role Phone Evie Roblero Unavailable [...] REFILL Herbert Singh MD Apr 11, 2015 Annabellaia Herbert Singh MD June 07, 2015 LEFLUNOMIDE [...] HOSPITAL Herbert Singh MD Jan 25, 2016 10 wk follow up Herbert Singh MD Feb 20, 2016 MEDICATION Herbert Singh MD July 17, 2015 vit d Herbert Singh MD July 25, 2015 1 month f/u Herbert Singh MD August 10, 2015 Otcaitlin Singh MD September 11, 2015 Problems Problem Type Condition ICD-9 Code Onset Dates Condition Status Assessment 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 [address]-84 30 MG Orally Twice a day July 13, 2015 Active [address] [facility] [address]-33 1 MG Orally Once a day Active 1 tablet 1 to [address] [facility] [address]-49 0.03 % Ophthalmic Once a day Active 1 drop into affected eye every evening Lisinopril [facility] [address]-32 20 MG Orally Once a day Active [address] [facility] [address]-64 0.05 % Externally Twice a day Active 1 application to affected area Vitamin D (Ergocalciferol) [facility] [id number] 31724 UNIT Orally once a week May 20, 2016 Active take 1 capsule one time weekly Social History Social History Element Qualifiers Date Reported Tobacco Use: . Are you a:: former smoker , How long has it been since you last smoked?: > 10 years Feb 20, 2016 Marital Status: . Feb 20, 2016 Caffeine: yes. frequency:, 1-5 Feb 20, 2016 Exercise: no. Feb 20, 2016 Alcohol: no. 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
--- OUTSIDE RECORDS SUMMARY | 2017-12-09 12:37 | XMS REPORT ---
Author Author Herbert Singh eClinicalWorks Address Unknown Phone Unavailable Care Team Providers Care Bar Manager Name Role Phone Herbert Singh CP Unavailable [...] Problem Psoriasis vulgaris L40.0 Active Problem Other alf (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 you last smoked?: > 10 years July 12, 2015 Marital Status: . July 12, 2015 Caffeine: yes. frequency:, 1-5 July 12, 2015 Exercise: no. July 12, 2015 Alcohol: no. 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
--- OUTSIDE RECORDS SUMMARY | 2017-12-09 12:37 | XMS REPORT ---
Author Author Herbert Singh eClinicalWorks Address Unknown Phone Unavailable Care Team Providers Care Strategic Account Director Name Role Phone Herbert Singh CP Unavailable [...] HURT Herbert Singh MD Feb 06, 2015 6 WK FU Herbert Singh MD Mar 27, 2015 otezla approval Herbert Singh MD June 15, 2015 RX REFILL Herbert Snigh MD Apr 11, 2015 Prolia Herbert Singh MD June 07, 2015 LEFLUNOMIDE REFILL Herbert Singh MD Mar 30, 2015 Unknown Herbert Singh MD Mar 30, 2015 Problems Problem Type Condition ICD-9 Code Onset Dates Condition Status Problem Osteopenia 733.90 Active Problem Unspecified vitamin D deficiency 268.9 Active Problem Lumbago 724.2 Active Problem Psoriasis vulgaris L40.0 Active Problem 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
--- OUTSIDE RECORDS SUMMARY | 2017-12-09 12:37 | XMS REPORT ---
Author Author Herbert Singh eClinicalWorks Address Unknown Phone Unavailable Care Team Providers Care Rn Concurrent Review Name Role Phone Herbert Singh CP Unavailable [...] Herbert Singh MD July 12, 2015 Refill- Otcaitlin Singh MD July 13, 2015 PAIN Herbert Singh MD Feb 06, 2015 ALL JOINTS HURT Herbert Singh MD Feb 06, 2015 Otezla pt assistance Herbert Singh MD September 18, 2015 MEDICATION Herbert Singh MD July 17, 2015 vit d Herbert Singh MD July 25, 2015 1 month f/u Herbert Singh MD August 10, 2015 Otezla Herbert Singh MD September 11, 2015 Problems Problem Type Condition ICD-9 Code Onset Dates Condition Status Problem Psoriasis vulgaris L40.0 Active Problem Other group home (current) drug therapy Z79.899 Active Problem Osteoporosis M81.0 Active Problem Vitamin D deficiency E55.9 Active Problem 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
--- OUTSIDE RECORDS SUMMARY | 2017-12-09 12:37 | XMS REPORT ---
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 Problem 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 Medications Medication Code System Code Instructions Start Date End Date Status Dosage Alendronate Sodium [facility] [address]-33 70 MG Orally once a week Active 1 tablet [facility]inop[facility] [address]-22 20 MG Orally Once a day Active 1 tablet Plaquenil [facility] [address]-67 200 MG Orally Twice a day Active 1 tablet with food or milk Tylenol Arthritis Pain [facility] [address]-78 650 MG Orally every 8 hrs Active 1 tablet as needed Clobetasol Propionate [facility] [address]-46 0.05 % Externally Twice a day Active 1 application to affected area Lumigan [facility] [address]-61 0.03 % Ophthalmic Once a day Active 1 drop into affected eye every evening Social History Social History Element Qualifiers Date Reported Tobacco Use: . Are you a:: former smoker , How long has it been since you last smoked?: > 10 years July 14, 2015 Marital Status: . July 14, 2015 Caffeine: yes. frequency:, 1-5 July 14, 2015 Exercise: no. July 14, 2015 Alcohol: no. 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
--- OUTSIDE RECORDS SUMMARY | 2017-12-09 12:37 | XMS REPORT ---
Author Author Herbert Singh eClinicalWorks Address Unknown Phone Unavailable Care Team Providers Care Machine Shop Repair Technician Name Role Phone Herbert Singh CP Unavailable [...] Problem Psoriasis vulgaris L40.0 Active Problem Other senior living (current) drug [...]
--- OUTSIDE RECORDS SUMMARY | 2017-12-09 12:37 | XMS REPORT ---
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 Problem Psoriasis 696.1 Active Problem Osteoarthrosis, 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 Active Problem 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 Medications Medication Code System Code Instructions Start Date End Date Status Dosage Tramadol HCl [facility] [address]-08 50 MG Orally every 8 hrs June 25, 2015 Active 1 tablet as needed Prednisone Taper [facility] 4[address]-60 5mg Active 3 tablets for 5 days, 2 tablets for 5 days and then 1 tablet for 5 days Clobetasol Propionate [facility] [address]-49 0.05 % Externally Twice a day Feb 09, 2015 August 08, 2015 Active 1 application to affected area Olux [facility] [address]-07 0.05 % Externally Twice a day Feb 09, 2015 August 08, 2015 Active 1 application to affected area Lisinopril [facility] [address]-18 20 MG Orally Once a day Active 1 tablet Warfarin Sodium [facility] [address]-47 2.5 MG Orally Once a day Active 1 tablet Alendronate Sodium [facility] [address]-70 70 MG Orally once a week August 08, 2015 Active 1 tablet Plaquenil [facility] [address]-68 200 MG Orally Twice a day Feb 09, 2015 August 08, 2015 Active 1 tablet with food or milk Tylenol Arthritis Pain [facility] [address]-61 650 MG Orally every 8 hrs Active 1 tablet as needed Lumigan [facility] [address]-63 0.03 % Ophthalmic Once a day Active [...] House June 07, 2015 Vital Signs Date/Time: Mar 27, 2015 Weight 122 lbs Height 58 in Temperature 97.4 F Cardiac Monitoring Heart Rate 80 /min Blood Pressure Diastolic 58 mm Hg Blood Pressure Systolic 128 mm Hg Immunizations Vaccine Administration Date Depomedrol Mar 27, 2015 Summary Purpose eClinicalWorks Submission
== END | disposition home or self-care (01) ==
LOC: CATH LAB 10:33
PROVIDERS: ATTEND Internal Medicine
DX: I25.10 Atherosclerotic heart disease of native coronary artery without angina pectoris (principal); R94.39 Abnormal result of other cardiovascular function study; I10 Essential (primary) hypertension; I65.23 Occlusion and stenosis of bilateral carotid arteries; I73.9 Peripheral vascular disease, unspecified; G25.81 Restless legs syndrome; Z01.812 Encounter for preprocedural laboratory examination; Z88.2 Allergy status to sulfonamides
CPT/HCPCS: 36415; 80053; 80061; 85025; 85610; 93458; C1769; J1644; J2001; J2250; J2405; J7030; Q9967

== ENCOUNTER → 2017-12-08 | Outpatient (CLI) | payer MEDICARE, OTHER ==
[~2017-12-08] MED LIST changes: -FENTANYL CITRATE/PF 100MCG/2 ML INJ ONE; -HEPARIN SOD (PORCINE) 1000 UNIT/ML 30ML ONE; -HEPARIN SOD/SOD CHLORIDE 2,000 ML ONE; -IOPAMIDOL 370 MG/ML 200 ML INFUS..BTL INJ ONE; -LIDOCAINE HCL 2% LOCAL 20 ML VIAL ONE; -MIDAZOLAM HCL 2 MG/2 ML VIAL ONE; -NITROGLYCERIN/D5W 200 MCG/ML 250 ML ONE; -ONDANSETRON HCL INJ 2 MG/ML VIAL ONE; -SODIUM CHLORIDE 0.9% 1000ML 1,000 ML ONE; -VERAPAMIL HCL 2.5 MG/ML 2 ML VIAL ONE
--- NOTE | 2017-12-09 09:40 | Diagnostic Imaging Report ---
EXAMINATION: PA and lateral views of the chest. COMPARISON: CT chest 06/21/2016 CLINICAL HISTORY: COPD, shortness of breath DISCUSSION: Lines/tubes: None. Lungs: Lungs are mildly hyperinflated, with increased lucency in the upper lungs, likely reflecting COPD changes. No consolidation or pulmonary edema. Pleura: Mild blunting of bilateral posterior costophrenic sulci. Heart and mediastinum: Cardiomediastinal silhouette is unremarkable. Pulmonary vasculature is normal. Bones and soft tissues: No acute bony abnormalities. Degenerative changes in the thoracic spine IMPRESSION: Mild blunting of bilateral posterior costophrenic sulci, which may reflect small volume pleural effusions versus pleural thickening. No consolidation or pulmonary edema. COPD changes Signed by: Dr. Geovani Little M.D. on 12/09/2017 9:36 AM
== END ==
LOC: RAD 16:19
PROVIDERS: ATTEND Internal Medicine
DX: J44.9 Chronic obstructive pulmonary disease, unspecified (principal)
CPT/HCPCS: 71046

== ENCOUNTER → 2018-07-14 | Outpatient (CLI) | payer MEDICARE, OTHER ==
--- NOTE | 2018-07-14 14:44 | Diagnostic Imaging Report ---
Renal ultrasound. History: Acute renal insufficiency. Discussion: Transverse and longitudinal images of the kidneys were obtained demonstrating normal renal sizes and echogenicities. There is no evidence of hydronephrosis, mass or renal calculus. The right kidney measures 8.5 x 4.4 x 3.6 cm and the left kidney measures 8.3 x 4.2 x 3.6 cm. Maximal cortical thickness on the right and left side is 1.5 cm. The urinary bladder is unremarkable with a prevoid estimated volume of 114 cc and a post void residual of 4.7 cc. There is no evidence of free fluid. IMPRESSION: Small kidneys with normal echogenicity. No hydronephrosis. Signed by: Dr. Jared Ernst DO on 07/14/2018 2:40 PM
== END ==
LOC: US 11:31
PROVIDERS: ATTEND Internal Medicine Nephrology
DX: N17.9 Acute kidney failure, unspecified (principal)
CPT/HCPCS: 76770; 76857

== ENCOUNTER → 2019-07-05 | Outpatient (CLI) | payer MEDICARE, OTHER ==
[~2019-07-05] MED LIST changes: +IOPAMIDOL 370 MG/ML 200 ML INFUS..BTL INJ ONE; +SODIUM CHLORIDE 0.9% 500ML 500 ML ONE; +SODIUM CHLORIDE 0.9% 50ML 50 ML ONE
[2019-07-05 10:34] LABS: CREATININE, SERUM 1.05 mg/dL (0.57-1.11)
--- NOTE | 2019-07-05 10:40 | Diagnostic Imaging Report ---
EXAM: CHEST 2 VIEWS DATE: 07/05/2019 10:04 AM INDICATION: Cough COMPARISON: 12/08/2017 FINDINGS: The trachea is midline. The lungs are symmetrically expanded without evidence for large focal consolidation, pneumothorax, or significant pleural effusion. The cardiomediastinal silhouette and pulmonary vasculature are within normal limits. No acute osseous abnormality is identified. The surrounding soft tissues are unremarkable. IMPRESSION: No acute cardiopulmonary process identified. Signed by: Dr. Juanjo Jean-Baptiste MD on 07/05/2019 10:37 AM
--- NOTE | 2019-07-05 12:11 | Diagnostic Imaging Report ---
CT of the abdomen and pelvis, with contrast. History: Abdominal pain. Comparison: None available. Technique: Multidetector CT scanning of the abdomen and pelvis was performed from the level of the lung bases to the inferior pubic rami after intravenous administration of contrast. Coronal and sagittal multiplanar reformations were obtained. RADIATION DOSE: Total DLP: 261.75 mGy*cm Dose modulation, iterative reconstruction, and/or weight based adjustment of the mA/kV was utilized to reduce the radiation dose to as low as reasonably achievable. FINDINGS: A calcified granuloma is identified within the left lower lobe. There is mild bibasilar scarring/atelectasis. The imaged portion of the heart demonstrates no significant abnormalities. The liver is normal in size and attenuation without evidence for focal abnormality. The gallbladder is unremarkable. There is no evidence for radiopaque stones, wall thickening, or pericholecystic fluid. There is no biliary ductal dilatation. The stomach, spleen, pancreas, and bilateral adrenal glands are unremarkable. The kidneys enhance symmetrically. There is no evidence for hydronephrosis. No ureteral stone or dilatation is appreciated. The urinary bladder is unremarkable. The uterus is surgically absent. No abnormal adnexal masses are identified. The abdominal aorta is normal course and caliber with atherosclerotic calcifications within its course and branch vessels. Please note that evaluation the bowel is limited without the use of enteric contrast material. The visualized loops small and large bowel demonstrate no evidence of obstruction or inflammation. Extensive diverticula are noted within the sigmoid and descending colon without significant inflammatory change to suggest acute diverticulitis. There is no ascites or intraperitoneal free air. No abnormally enlarged lymph nodes are identified within the abdomen or pelvis. There are multilevel degenerative changes of the lumbar spine, most prominent at L4-L5 and L5-S1. Anterolisthesis of L4-L5 noted. There is no evidence for acute fracture or destructive process. The extraperitoneal soft tissues are unremarkable. IMPRESSION: 1. No acute abdominopelvic process identified. 2. Diverticulosis coli without evidence for acute diverticulitis. Signed by: Dr. Juanjo Jean-Baptiste MD on 07/05/2019 12:08 PM
== END ==
LOC: CT 09:33
PROVIDERS: ATTEND Internal Medicine Medical Oncology
DX: R05 Cough (principal); R10.9 Unspecified abdominal pain; K57.30 Diverticulosis of large intestine without perforation or abscess without bleeding; F17.210 Nicotine dependence, cigarettes, uncomplicated
CPT/HCPCS: 36415; 71046; 74177; 82565; 84520; J7040; Q9967

== ENCOUNTER → 2020-02-03 | Outpatient (CLI) | payer MEDICARE, OTHER ==
[~2020-02-03] MED LIST changes: -IOPAMIDOL 370 MG/ML 200 ML INFUS..BTL INJ ONE; -SODIUM CHLORIDE 0.9% 500ML 500 ML ONE; -SODIUM CHLORIDE 0.9% 50ML 50 ML ONE
== END ==
LOC: MAMMO 12:37
PROVIDERS: ATTEND Family Medicine
DX: Z12.31 Encounter for screening mammogram for malignant neoplasm of breast (principal)
CPT/HCPCS: 77067

== ENCOUNTER → 2020-02-11 | Outpatient (CLI) | payer MEDICARE, OTHER | LOC: CT 11:41 | PROVIDERS: ATTEND Internal Medicine | DX: J44.9 Chronic obstructive pulmonary disease, unspecified (principal) | CPT/HCPCS: 71250 ==

== ENCOUNTER 2022-01-07 12:11 | Inpatient (IN) | payer MEDICARE, OTHER ==
[~2022-01-07] VITALS: Ht 147.3 cm; Wt 60.8 kg
[2022-01-07 12:46] LABS: BASOPHILS % 0.6 % (0.0-1.0); EOSINOPHILS # (AUTO) 0.1 (0.0-0.4); EOSINOPHILS % 1.2 % (0.0-6.0); HEMATOCRIT 41.9 % (34.2-44.1); HEMOGLOBIN 13.6 g/dL (12.0-16.0); LYMPHOCYTES # (AUTO) 1.2 (1.0-3.2); LYMPHOCYTES % 16.5 % (18.0-39.1); MEAN CORPUSCULAR HGB CONC 32.5 g/dL (31-35); MEAN CORPUSCULAR VOLUME 92.3 fL (81-99); MONOCYTES # (AUTO) 1.1 (0.2-0.8); MONOCYTES % 16.4 % (4.4-11.3); NEUTROPHILS # (AUTO) 4.5 (2.1-6.9); NEUTROPHILS % 64.7 % (38.7-80.0); PLATELET COUNT 324 x10e3/uL (140-360); RED BLOOD COUNT 4.54 x10e6/uL (3.6-5.1); RED CELL DISTRIBUTION WIDTH 13.2 % (11.7-14.4)
[2022-01-07 13:06] LABS: ALBUMIN 3.1 g/dL (3.5-5.0); ALBUMIN/GLOBULIN RATIO 0.6 (0.8-2.0); ANION GAP 18.2 mmol/L (8-16); CALCIUM 10.3 mg/dL (8.4-10.2); CREATININE, SERUM 1.35 mg/dL (0.57-1.11); POTASSIUM 3.2 mmol/L (3.5-5.1)
[2022-01-07 13:13] LABS: CREATINE KINASE MB 1.5 ng/mL (0-5.0)
[2022-01-07] MEDS ORDERED: Morphine 4mg INJECTION 4 MG/ML INJ IV PRN (13:30)
[2022-01-07] MEDS ORDERED: ONDANSETRON HCL INJ 2MG/ML 2ML 2 MG/ML VIAL IV PRN (13:30)
[2022-01-07] MEDS ORDERED: IOPAMIDOL 370 MG/ML 100 ML INFUS..BTL INJ ONE (13:35)
[2022-01-07 14:51] VITALS: BP 143/50
[2022-01-07] MEDS: SODIUM CHLORIDE 0.9% 1000ML 1,000 ML IV SCH ×2 (15:16→21:30)
[2022-01-07 16:18] VITALS: BP 143/50
[2022-01-07] MEDS ORDERED: ALBUTEROL/IPRATROPIUM 3 ML NEB NEB PRN (17:15)
[2022-01-07 20:00] VITALS: BP 142/61
[2022-01-07 21:00] VITALS: BP_SYST 105; BP_SYST 142; BP_DIAS 61
[2022-01-07] MEDS ORDERED: NON-FORMULARY MEDICATION (Pravastatin Sodium 40 MG) PO SCH (21:00)
[2022-01-07] MEDS: OTEZLA PO SCH (21:00)
[2022-01-07 21:16] LABS: CREATINE KINASE MB 1.6 ng/mL (0-5.0)
[2022-01-07] MEDS: PANTOPRAZOLE SOD 40 MG TABEC PO SCH (21:58)
[2022-01-07] MEDS: ROPINIROLE HCL 1 MG TAB PO SCH (21:58)
[2022-01-07] MEDS: PRAVASTATIN 20 MG TAB PO SCH (21:58)
[2022-01-08] VITALS (8 sets, daily range): BP systolic 105–133; BP diastolic 34–86
[2022-01-08] MEDS: SODIUM CHLORIDE 0.9% 1000ML 1,000 ML IV SCH ×4 (00:19→21:30)
[2022-01-08 05:42] LABS: BASOPHILS # (AUTO) 0.1 (0.0-0.1); EOSINOPHILS # (AUTO) 0.1 (0.0-0.4); EOSINOPHILS % 1.6 % (0.0-6.0); HEMATOCRIT 33.2 % (34.2-44.1); HEMOGLOBIN 11.3 g/dL (12.0-16.0); LYMPHOCYTES # (AUTO) 0.9 (1.0-3.2); LYMPHOCYTES % 17.9 % (18.0-39.1); MEAN CORPUSCULAR HEMOGLOBIN 30.1 pg (28-32); MEAN CORPUSCULAR VOLUME 88.5 fL (81-99); MONOCYTES # (AUTO) 0.7 (0.2-0.8); MONOCYTES % 14.5 % (4.4-11.3); NEUTROPHILS # (AUTO) 3.2 (2.1-6.9); NEUTROPHILS % 63.8 % (38.7-80.0); PLATELET COUNT 242 x10e3/uL (140-360); RED BLOOD COUNT 3.75 x10e6/uL (3.6-5.1); RED CELL DISTRIBUTION WIDTH 13.2 % (11.7-14.4)
[2022-01-08 06:08] LABS: ALBUMIN 2.3 g/dL (3.5-5.0); ALBUMIN/GLOBULIN RATIO 0.6 (0.8-2.0); ALKALINE PHOSPHATASE 68 IU/L (40-150); ANION GAP 14.5 mmol/L (8-16); BLOOD UREA NITROGEN 15 mg/dL (7-26); BUN/CREATININE RATIO 16 (6-25); CALCIUM 8.6 mg/dL (8.4-10.2); CARBON DIOXIDE 26 mmol/L (22-29); CHLORIDE 105 mmol/L (98-107); CREATININE, SERUM 0.92 mg/dL (0.57-1.11); GLUCOSE 94 mg/dL (74-118); POTASSIUM 3.5 mmol/L (3.5-5.1); SODIUM 142 mmol/L (136-145)
[2022-01-08] MEDS ORDERED: PIPERACILLIN/TAZOBACTAM 3.375 GM VIAL ONE (06:08)
[2022-01-08 06:11] LABS: ALANINE AMINOTRANSFERASE < 6 IU/L (0-55)
[2022-01-08 06:15] LABS: CREATINE KINASE MB 1.1 ng/mL (0-5.0)
[2022-01-08] MEDS: LISINOPRIL 10 MG TAB PO SCH (09:13)
[2022-01-08] MEDS: DICYCLOMINE HCL 20 MG TAB PO SCH (09:13)
[2022-01-08] MEDS: BIMATOPROST(OPTH) 2.5 ML BOTTLE OP SCH (09:14)
[2022-01-08] MEDS: ALBUTEROL/IPRATROPIUM 3 ML NEB NEB SCH ×2 (14:10→19:10)
[2022-01-08] MEDS: OTEZLA PO SCH (21:00)
[2022-01-08] MEDS: PANTOPRAZOLE SOD 40 MG TABEC PO SCH (21:01)
[2022-01-08] MEDS: PRAVASTATIN 20 MG TAB PO SCH (21:01)
[2022-01-08] MEDS: ROPINIROLE HCL 1 MG TAB PO SCH (21:01)
[2022-01-09] VITALS (9 sets, daily range): BP systolic 96–113; BP diastolic 40–49
[2022-01-09] MEDS: ALBUTEROL/IPRATROPIUM 3 ML NEB NEB SCH ×4 (00:32→18:51)
[2022-01-09] MEDS: SODIUM CHLORIDE 0.9% 1000ML 1,000 ML IV SCH ×3 (06:20→20:37)
[2022-01-09] MEDS: LISINOPRIL 10 MG TAB PO SCH (09:00)
[2022-01-09] MEDS: BIMATOPROST(OPTH) 2.5 ML BOTTLE OP SCH (09:40)
[2022-01-09] MEDS: DICYCLOMINE HCL 20 MG TAB PO SCH (09:40)
[2022-01-09] MEDS: MEGACE 400MG/ 10ML CUP PO SCH (09:40)
[2022-01-09] MEDS ORDERED: ONDANSETRON HCL 4 MG ORAL DISINTEGRATING TAB PO PRN (11:30)
[2022-01-09] MEDS: PANTOPRAZOLE SOD 40 MG TABEC PO SCH (20:37)
[2022-01-09] MEDS: ROPINIROLE HCL 1 MG TAB PO SCH (20:37)
[2022-01-09] MEDS: PRAVASTATIN 20 MG TAB PO SCH (20:37)
[2022-01-09] MEDS: OTEZLA PO SCH (20:41)
[2022-01-10] VITALS (7 sets, daily range): BP systolic 93–114; BP diastolic 41–49
[2022-01-10] MEDS: SODIUM CHLORIDE 0.9% 1000ML 1,000 ML IV SCH ×3 (02:26→21:05)
[2022-01-10] MEDS: ALBUTEROL/IPRATROPIUM 3 ML NEB NEB SCH ×4 (03:00→20:00)
[2022-01-10] MEDS: LISINOPRIL 10 MG TAB PO SCH (09:25)
[2022-01-10] MEDS: DICYCLOMINE HCL 20 MG TAB PO SCH (09:25)
[2022-01-10] MEDS: MEGACE 400MG/ 10ML CUP PO SCH (09:25)
[2022-01-10] MEDS: BIMATOPROST(OPTH) 2.5 ML BOTTLE OP SCH (10:37)
[2022-01-10] MEDS: OTEZLA PO SCH (21:00)
[2022-01-10] MEDS: ROPINIROLE HCL 1 MG TAB PO SCH (21:03)
[2022-01-10] MEDS: PRAVASTATIN 20 MG TAB PO SCH (21:04)
[2022-01-10] MEDS: PANTOPRAZOLE SOD 40 MG TABEC PO SCH (21:04)
[2022-01-10] MEDS ORDERED: DIPHENHYDRAMINE HCL 25 MG CAP PO PRN (22:30)
[2022-01-11] VITALS (7 sets, daily range): BP systolic 89–137; BP diastolic 46–64
[2022-01-11] MEDS: ALBUTEROL/IPRATROPIUM 3 ML NEB NEB SCH ×4 (01:00→20:00)
[2022-01-11] MEDS: SODIUM CHLORIDE 0.9% 1000ML 1,000 ML IV SCH ×2 (05:21→13:47)
[2022-01-11] MEDS: BIMATOPROST(OPTH) 2.5 ML BOTTLE OP SCH (09:16)
[2022-01-11] MEDS: DICYCLOMINE HCL 20 MG TAB PO SCH (09:16)
[2022-01-11] MEDS: LISINOPRIL 10 MG TAB PO SCH (09:16)
[2022-01-11] MEDS: MEGACE 400MG/ 10ML CUP PO SCH (09:16)
[2022-01-11] MEDS: OTEZLA PO SCH (20:43)
[2022-01-11] MEDS: ROPINIROLE HCL 1 MG TAB PO SCH (20:43)
[2022-01-11] MEDS: PRAVASTATIN 20 MG TAB PO SCH (20:43)
[2022-01-11] MEDS: PANTOPRAZOLE SOD 40 MG TABEC PO SCH (20:43)
[2022-01-12] MEDS: ALBUTEROL/IPRATROPIUM 3 ML NEB NEB SCH ×3 (00:10→13:17)
[2022-01-12 01:03] VITALS: BP 147/62
[2022-01-12] MEDS: SODIUM CHLORIDE 0.9% 1000ML 1,000 ML IV SCH (03:16)
[2022-01-12 04:49] VITALS: BP 162/62
[2022-01-12 06:38] LABS: BASOPHILS % 0.4 % (0.0-1.0); EOSINOPHILS # (AUTO) 0.4 (0.0-0.4); HEMATOCRIT 28.7 % (34.2-44.1); HEMOGLOBIN 9.1 g/dL (12.0-16.0); LYMPHOCYTES # (AUTO) 0.9 (1.0-3.2); LYMPHOCYTES % 12.8 % (18.0-39.1); MEAN CORPUSCULAR HEMOGLOBIN 29.3 pg (28-32); MEAN CORPUSCULAR HGB CONC 31.7 g/dL (31-35); MEAN CORPUSCULAR VOLUME 92.3 fL (81-99); MONOCYTES # (AUTO) 0.7 (0.2-0.8); MONOCYTES % 10.1 % (4.4-11.3); NEUTROPHILS # (AUTO) 4.9 (2.1-6.9); NEUTROPHILS % 69.8 % (38.7-80.0); PLATELET COUNT 242 x10e3/uL (140-360); RED BLOOD COUNT 3.11 x10e6/uL (3.6-5.1); RED CELL DISTRIBUTION WIDTH 13.9 % (11.7-14.4)
[2022-01-12 07:23] VITALS: BP 165/73
[2022-01-12 07:27] LABS: ANION GAP 12.7 mmol/L (8-16); CALCIUM 7.9 mg/dL (8.4-10.2); CREATININE, SERUM 0.84 mg/dL (0.57-1.11)
[2022-01-12 07:31] LABS: POTASSIUM 2.7 mmol/L (3.5-5.1)
[2022-01-12 08:00] VITALS: BP 165/73
[2022-01-12] MEDS ORDERED: POTASSIUM CHLORIDE 20 MEQ TAB CR PO STA (08:23)
[2022-01-12] MEDS: DICYCLOMINE HCL 20 MG TAB PO SCH (09:00)
[2022-01-12] MEDS: BIMATOPROST(OPTH) 2.5 ML BOTTLE OP SCH (09:00)
[2022-01-12] MEDS: LISINOPRIL 10 MG TAB PO SCH (10:00)
[2022-01-12] MEDS: MEGACE 400MG/ 10ML CUP PO SCH (10:14)
[2022-01-12] MEDS ORDERED: POTASSIUM CHLORIDE 20 MEQ TAB CR PO ONE ×2 (10:30→12:30)
[2022-01-12 11:18] VITALS: BP 159/60
[2022-01-12 15:34] VITALS: BP 146/72
[2022-01-14] MEDS ORDERED: CHOLECALCIFEROL PO SCH (10:00)
== END 2022-01-12 18:10 | DRG 178 ==
LOC: ER 12:17 → ERHOLD 13:21 → MED/SURG3 14:15
DX: J15.6 Pneumonia due to other Gram-negative bacteria (principal); E44.0 Moderate protein-calorie malnutrition; J44.0 Chronic obstructive pulmonary disease with (acute) lower respiratory infection; I11.9 Hypertensive heart disease without heart failure; F01.50 Vascular dementia, unspecified severity, without behavioral disturbance, psychotic disturbance, mood disturbance, and anxiety; D63.8 Anemia in other chronic diseases classified elsewhere; R09.02 Hypoxemia; K21.9 Gastro-esophageal reflux disease without esophagitis; K52.3 Indeterminate colitis; E78.5 Hyperlipidemia, unspecified; I25.10 Atherosclerotic heart disease of native coronary artery without angina pectoris; Z88.2 Allergy status to sulfonamides; Z68.28 Body mass index [BMI] 28.0-28.9, adult; Z20.822 Contact with and (suspected) exposure to COVID-19
CPT/HCPCS: 36415; 71045; 71260; 80048; 80053; 82550; 82553; 83880; 84484; 85025; 85379; 93005; 94640; 94799; 96360; 99251; 99284; J2543; J7030; Q9967